=== PATIENT | female | born 1960 | race American Indian/Alaskan Native ===

== ENCOUNTER 2019-02-06 19:51 | Emergency (ER) | payer MEDICARE ==
--- NOTE | 2019-02-06 21:25 | Emergency Department Report ---
Blank Doc - Documentation Documentation: 58 y/o bilateral leg swelling and pain times 1 week. PMH DM, HTN, CHF
[2019-02-06 21:35] LABS: Basophils # (Auto) 0.1 K/mm3 (0.0-0.1); Basophils % (Auto) 1.6 % (0.0-1.8); Eosinophils # (Auto) 0.2 K/mm3 (0.0-0.4); Eosinophils % (Auto) 2.1 % (0.0-4.3); Hemoglobin 12.1 gm/dl (10.1-14.3); Lymphocytes # (Auto) 2.7 K/mm3 (1.2-5.4); Lymphocytes % (Auto) 30.3 % (13.4-35.0); Mean Corpuscular HGB Conc 34 % (30-34); Mean Corpuscular Volume 90 fl (79-97); Monocytes # (Auto) 0.7 K/mm3 (0.0-0.8); Monocytes % (Auto) 8.2 % (0.0-7.3); Platelet Count 254 K/mm3 (140-440); Red Blood Count 3.99 M/mm3 (3.65-5.03)
[2019-02-06 21:58] LABS: Alanine Aminotransferase 13 units/L (7-56); Albumin 3.6 g/dL (3.9-5); BUN/Creatinine Ratio 26; Blood Urea Nitrogen 18 mg/dL (7-17); Calcium 9.4 mg/dL (8.4-10.2); Hemolysis Index 14
[2019-02-06] MEDS ORDERED: LASIX IV ONE (23:50)
--- NOTE | 2019-02-06 23:56 | Emergency Department Report ---
ED General Adult HPI - General Chief complaint: Extremity Problem,Nontraumatic Stated complaint: BILATERAL LEG PAIN/EDEMA Time Seen by Provider: 02/06/19 23:47 Source: patient Mode of arrival: Ambulatory Limitations: No Limitations - History of Present Illness Initial comments: Mrs. Bolden is a very pleasant 58-year-old female history of CHF, bipolar di sorder, schizophrenia, dyslipidemia, hypertension. She recently moved moved from [facility]. For the past week she's had tense leg swelling. She denies shortness of breath or chest pain. She takes furosemide 40 mg twice a day. She states when swelling worsen she normally needs a shot of Lasix. She does admit to adding salt to her foods. She has trouble complying with a low salt diet. -: Gradual, week(s) (1) Location: left, right, lower extremity Quality: aching Consistency: constant Improves with: medication Associated Symptoms: denies other symptoms - Related Data Allergies Allergy/AdvReac Type Severity Reaction Status Date / Time No Known Allergies Allergy Unverified 02/06/19 21:22 ED Review of Systems ROS: Stated complaint: BILATERAL LEG PAIN/EDEMA Other details as noted in HPI Comment: All other systems reviewed and negative Constitutional: denies: fever, malaise Cardiovascular: denies: chest pain ED Past Medical Hx - Past Medical History Previous Medical History?: Yes Hx Hypertension: Yes Hx Congestive Heart Failure: Yes Hx Psychiatric Treatment: Yes (bipolar, schizophrenia) Additional medical history: hyperlipidemia - Surgical History Past Surgical History?: Yes Additional Surgical History: hysterectomy, cardiac cath - Social History Smoking Status: Current Every Day Smoker Substance Use Type: None, Alcohol ED Physical Exam - General Limitations: No Limitations General appearance: alert, in no apparent distress, other (pleasant and articulate) - Head Head exam: Present: atraumatic, normocephalic - Eye Eye exam: Present: normal appearance - ENT ENT exam: Present: mucous membranes moist - Neck Neck exam: Present: normal inspection, full ROM - Respiratory Respiratory exam: Present: normal lung sounds bilaterally. Absent: respiratory distress, wheezes, rales, rhonchi - Cardiovascular Cardiovascular Exam: Present: regular rate, normal rhythm, normal heart sounds. Absent: systolic murmur, diastolic murmur, rubs, gallop - GI/Abdominal GI/Abdominal exam: Present: soft, normal bowel sounds. Absent: distended, tenderness, guarding, rebound - Extremities Exam Extremities exam: Present: pedal edema (pitting edema lower extremities from mid thigh to foot) - Back Exam Back exam: Present: normal inspection - Neurological Exam Neurological exam: Present: alert, oriented X3 - Psychiatric Psychiatric exam: Present: normal affect, normal mood - Skin Skin exam: Present: warm, dry, intact, normal color. Absent: rash ED Course Vital Signs 02/06/19 19:59 Temperature 97.6 F Pulse Rate 85 Respiratory 16 Rate Blood Pressure 141/84 O2 Sat by Pulse 92 Oximetry ED Medical Decision Making - Lab Data Result diagrams: 02/06/19 21:25 02/06/19 21:25 Laboratory Results - last 24 hr 02/06/19 02/06/19 21:25 21:25 WBC 9.0 RBC 3.99 Hgb 12.1 Hct 36.0 MCV 90 MCH 30 MCHC 34 RDW 15.0 Plt Count 254 Lymph % (Auto) 30.3 [place] % (Auto) 8.2 H Eos % (Auto) 2.1 Baso % (Auto) 1.6 Lymph # 2.7 [place] # 0.7 Eos # 0.2 Baso # 0.1 Seg Neutrophils % 57.8 Seg Neutrophils # 5.2 Sodium 140 Potassium 4.4 Chloride 102.6 Carbon Dioxide 27 Anion Gap 15 BUN 18 H Creatinine 0.7 Estimated GFR > 60 BUN/Creatinine Ratio 26 Glucose 223 H Calcium 9.4 Total Bilirubin 0.30 AST 18 ALT 13 Alkaline Phosphatase 49 NT-Pro-B Natriuret Pep 3753 H Total Protein 6.2 L Albumin 3.6 L Albumin/Globulin Ratio 1.4 - Medical Decision Making Mrs. Bolden presents with recurrent/chronic bilateral lower extremity edema with known history of congestive heart failure. Labs remarkable for elevated BNP normal kidney function. She received IV furosemide in the emergency department. Discharged with referral to assistant real estate manager on-call. Mrs. Bolden appears well without work of breathing. Critical care attestation.: If time is entered above; I have spent that time in minutes in the direct care of this critically ill patient, excluding procedure time. ED Disposition Clinical Impression: Bilateral lower extremity edema, Hx of congestive heart failure Disposition: - TO HOME OR SELFCARE Is pt being admited?: No Does the pt Need Aspirin: No Condition: Stable Instructions: Heart Failure (ED), Leg Edema (ED) Referrals: HANS PITTS MD [Staff Physician] - 3-5 Days
[2019-02-07 00:52] VITALS: BP 138/88
== END 2019-02-07 00:52 | disposition home or self-care (01) ==
LOC: ED 19:51
DX: R60.9 Edema, unspecified (principal); I11.0 Hypertensive heart disease with heart failure; I50.9 Heart failure, unspecified; E78.5 Hyperlipidemia, unspecified; F17.200 Nicotine dependence, unspecified, uncomplicated; Z90.710 Acquired absence of both cervix and uterus
CPT/HCPCS: 36415; 80053; 83880; 85025; 96374; 99283; J1940

== ENCOUNTER 2019-04-24 11:00 | Outpatient (CLI) | payer MEDICARE | END 2019-04-24 11:01 | disposition home or self-care (01) | LOC: SLR 11:00 | PROVIDERS: ATTEND Otolaryngology | DX: G47.33 Obstructive sleep apnea (adult) (pediatric) (principal); R40.0 Somnolence; R06.83 Snoring; E66.9 Obesity, unspecified; I11.0 Hypertensive heart disease with heart failure; I50.9 Heart failure, unspecified | CPT/HCPCS: 95810 ==

== ENCOUNTER 2019-04-27 10:39 | Inpatient (IN) | payer MEDICARE ==
--- NOTE | 2019-04-27 11:32 | Emergency Department Report ---
ED General Adult HPI - General Chief complaint: Hyperglycemia Stated complaint: HIGH BLOOD SUGAR Time Seen by Provider: 04/27/19 11:19 Source: patient, EMS (ems notes not available at time of chart dictation), RN notes reviewed, old records reviewed Mode of arrival: Stretcher - History of Present Illness Initial comments: This is a 58-year-old female. The patient is not known to this provider previously. Past medical history includes high cholesterol, congestive heart failure, diabetes, hypertension, psychiatric disease, CHF, bipolar Patient initially sent to the ER with a complaint of hyperglycemia. Accu-Chek was 421. Patient also complains of a sensation of her chest wall caving in, shortness of breath and lower extremity swelling. Symptoms are constant, does not radiate anywhere, worse with physical exertion and decreased with rest. The patient indicates no DVT or pulmonary embolism risk factors. She also endorses nontraumatic left-sided thumb pain. It decreases with ibuprofen and Motrin. -: Gradual Location: chest, left, upper extremity Radiation: non-radiation Quality: aching Consistency: other Improves with: other Worsens with: other Associated Symptoms: shortness of breath - Related Data Allergies Allergy/AdvReac Type Severity Reaction Status Date / Time No Known Allergies Allergy Verified 04/27/19 11:05 ED Review of Systems ROS: Stated complaint: HIGH BLOOD SUGAR Other details as noted in HPI Constitutional: denies: fever, malaise Eyes: denies: eye discharge ENT: denies: congestion Respiratory: shortness of breath Cardiovascular: chest pain, edema Gastrointestinal: denies: nausea, vomiting Genitourinary: denies: dysuria Musculoskeletal: arthralgia, myalgia Skin: denies: lesions Neurological: weakness Hematological/Lymphatic: denies: easy bleeding ED Past Medical Hx - Past Medical History Previous Medical History?: Yes Hx Hypertension: Yes Hx Congestive Heart Failure: Yes Hx Diabetes: Yes Hx GERD: Yes Hx Psychiatric Treatment: Yes (bipolar, schizophrenia,depression) Hx COPD: Yes Additional medical history: hyperlipidemia, cardiomegaly, OA, atherosclerosis of bilateral legs - Surgical History Past Surgical History?: Yes Additional Surgical History: hysterectomy, cardiac cath, bilateral foot surgery - Social History Smoking Status: Current Every Day Smoker Substance Use Type: None ED Physical Exam - General Limitations: No Limitations General appearance: alert, anxious, obese - Head Head exam: Present: atraumatic, normocephalic - Eye Eye exam: Present: normal appearance, EOMI. Absent: nystagmus - ENT ENT exam: Present: normal exam, normal orophraynx, mucous membranes moist, n ormal external ear exam - Neck Neck exam: Present: normal inspection, full ROM. Absent: tenderness, meningismus - Respiratory Respiratory exam: Present: rales. Absent: respiratory distress - Cardiovascular Cardiovascular Exam: Present: regular rate, normal rhythm, normal heart sounds, JVD. Absent: bradycardia, tachycardia, irregular rhythm, systolic murmur, diastolic murmur, rubs, gallop - GI/Abdominal GI/Abdominal exam: Present: soft. Absent: distended, tenderness, guarding, rebound, rigid, pulsatile mass - Extremities Exam Extremities exam: Present: normal inspection, full ROM, pedal edema, other (2+ pulses noted in the bilateral upper, lower extremities. Compartments soft. No long bony tenderness. The pelvis is stable.). Absent: joint swelling, calf tenderness - Back Exam Back exam: Present: normal inspection, full ROM. Absent: tenderness, CVA tenderness (R), CVA tenderness (L), paraspinal tenderness, vertebral tenderness - Neurological Exam Neurological exam: Present: alert, oriented X3, other (Extraocular movements intact. Tongue midline. No facial droop. Facial sensation intact to light touch in the V1, V2, V3 distribution bilaterally. 5 and 5 strength in 4 extremities.. Sensation is intact to light touch in 4 extremities.). Absent: motor sensory deficit - Psychiatric Psychiatric exam: Present: normal affect, normal mood - Skin Skin exam: Present: warm, dry, intact, normal color. Absent: rash ED Course Vital Signs 04/27/19 04/27/19 04/27/19 10:56 11:01 11:12 Temperature 97.8 F Pulse Rate 69 Respiratory 16 Rate Blood Pressure 170/99 Blood Pressure 152/89 [Right] O2 Sat by Pulse 91 97 95 Oximetry 04/27/19 04/27/19 11:31 12:13 Temperature Pulse Rate Respiratory Rate Blood Pressure 145/122 180/101 Blood Pressure [Right] O2 Sat by Pulse 96 97 Oximetry - Reevaluation(s) Reevaluation #1: 04/27/19 13:05 Differential diagnosis, including not limited to: GERD, gastritis, hiatal hernia, pneumonia, congestive heart failure, acute coronary syndrome, pulmonary hypertension, obstructive sleep apnea Assessment and plan: 58-year-old female with numerous cardiovascular risk factors, including female gender, obesity, diabetes, hypertension and high cholesterol, who appears to be obese, most likely has undiagnosed sleep apnea, pulmonary hypertension, presented with evidence of decompensated right-sided heart failure, manifest by hypoxia on room air, saturating at 90-90% on room air, lower extremity edema, and JVD. She endorses no DVT or pulmonary embolus risk factors. The patient is moderate risk for major adverse cardiac event as per the heart score risk stratification tool. She is also found to be hyperglycemic. She will be given Lasix, aspirin, insulin, the patient will be admitted to the medical service for glycemic optimization, diuresis, and consideration for cardiac risk stratification. Reevaluation #2: 04/27/19 13:[address] Kelby Shen, [facility] physician ED Medical Decision Making - Lab Data Result diagrams: 04/27/19 12:01 04/27/19 12:01 Vital Signs 04/27/19 04/27/19 04/27/19 10:56 11:01 11:12 Temperature 97.8 F Pulse Rate 69 Respiratory 16 Rate Blood Pressure 170/99 Blood Pressure 152/89 [Right] O2 Sat by Pulse 91 97 95 Oximetry 04/27/19 04/27/19 11:31 12:13 Temperature Pulse Rate Respiratory Rate Blood Pressure 145/122 180/101 Blood Pressure [Right] O2 Sat by Pulse 96 97 Oximetry Lab Results 04/27/19 04/27/19 04/27/19 Range/Units 11:00 12:01 12:01 WBC 7.1 (4.5-11.0) K/mm3 RBC 4.94 (3.65-5.03) M/mm3 Hgb 14.4 H (10.1-14.3) gm/dl Hct 45.0 H (30.3-42.9) % MCV 91 (79-97) fl MCH 29 (28-32) pg MCHC 32 (30-34) % RDW 14.9 (13.2-15.2) % Plt Count 251 (140-440) K/mm3 PT (12.2-14.9) Sec. INR (0.87-1.13) APTT (24.2-36.6) Sec. VBG pH (7.320-7.420) Sodium 141 (137-145) mmol/L Potassium 4.5 (3.6-5.0) mmol/L Chloride 101.0 (98-107) mmol/L Carbon Dioxide 32 H (22-30) mmol/L Anion Gap 13 mmol/L BUN 17 (7-17) mg/dL Creatinine 0.7 (0.7-1.2) mg/dL Estimated GFR > 60 ml/min BUN/Creatinine Ratio 24 % Glucose 282 H (65-100) mg/dL POC Glucose 421 H (70-105) Calcium 9.6 (8.4-10.2) mg/dL Magnesium 2.00 (1.7-2.3) mg/dL Total Creatine Kinase 140 H (30-135) units/L Troponin T (0.00-0.029) ng/mL NT-Pro-B Natriuret Pep (0-900) pg/mL 04/27/19 04/27/19 04/27/19 Range/Units 12:01 12:01 12:01 WBC (4.5-11.0) K/mm3 RBC (3.65-5.03) M/mm3 Hgb (10.1-14.3) gm/dl Hct (30.3-42.9) % MCV (79-97) fl MCH (28-32) pg MCHC (30-34) % RDW (13.2-15.2) % Plt Count (140-440) K/mm3 PT 13.7 (12.2-14.9) Sec. INR 1.08 (0.87-1.13) APTT 33.2 (24.2-36.6) Sec. VBG pH 7.328 (7.320-7.420) Sodium (137-145) mmol/L Potassium (3.6-5.0) mmol/L Chloride (98-107) mmol/L Carbon Dioxide (22-30) mmol/L Anion Gap mmol/L BUN (7-17) mg/dL Creatinine (0.7-1.2) mg/dL Estimated GFR ml/min BUN/Creatinine Ratio % Glucose (65-100) mg/dL POC Glucose (70-105) Calcium (8.4-10.2) mg/dL Magnesium (1.7-2.3) mg/dL Total Creatine Kinase (30-135) units/L Troponin T < 0.010 (0.00-0.029) ng/mL NT-Pro-B Natriuret Pep 1971 H (0-900) pg/mL - EKG Data -: EKG Interpreted by Pr EKG shows normal: sinus rhythm Rate: normal - EKG Data 04/27/19 13:07 EKG #1 shows a sinus rhythm, 67 bpm, normal axis, QTC prolonged, low voltage, atrial enlargement, abnormal EKG, there is no prior for comparison, the EKG is not consistent with ST elevation myocardial infarction. EKG number tube appears to be unchanged from prior. Neither EKG consistent with STEMI - Radiology Data Radiology results: pending, report reviewed, image reviewed Print Report Referring Physician: GRETA MINOR Patient Name: RENE ROGERS Date of : 1960 Sex: Female Report Date: 2019-04-27 Report Status: Finalized Findings [facility] [address] [place] [address] XRay Report Signed Patient: RENE ROGERS MR#: [id number] : 1960 Acct:[id number] Age/Sex: 58 / F ADM Date: 04/27/19 Loc: ED Attending Dr: Ordering Physician: GRETA MINOR MD Date of Service: 04/27/19 Procedure(s): XR chest routine 2V Accession Number(s): [id number] cc: GRETA MINOR MD Fluoro Time In Minutes: CHEST 2 VIEWS INDICATION: Chest pain, shortness of breath. COMPARISON: FINDINGS: Support devices: None. Heart: Mild cardiomegaly is evident. The mediastinal contour is within normal limits otherwise. Lungs/pleura: No acute air space or interstitial disease. No pneumothorax. Additional findings: None. IMPRESSION: Mild cardiomegaly. Lungs clear. Signer Name: Woody Lombardi Jr, MD Signed: 04/27/2019 12:24 PM Workstation Name: [id number] Transcribed By: TTR Dictated By: WOODY LOMBARDI JR, MD Electronically Authenticated By: WOODY LOMBARDI JR, MD Signed Date/Time: 04/27/19 1224 Critical care attestation.: If time is entered above; I have spent that time in minutes in the direct care of this critically ill patient, excluding procedure time. ED Disposition Clinical Impression: CHF exacerbation, Hyperglycemia, Acute chest pain Disposition: 09 OP ADMIT IP TO THIS HOSP Is pt being admited?: Yes Does the pt Need Aspirin: Yes Condition: Stable Instructions: Chest Pain (ED) Referrals: LAUREN BHATT MD [Primary Care Provider] - 3-5 Days
[2019-04-27 12:13] LABS: Hemoglobin 14.4 gm/dl (10.1-14.3); Mean Corpuscular HGB Conc 32 % (30-34); Mean Corpuscular Volume 91 fl (79-97); Platelet Count 251 K/mm3 (140-440); Red Blood Count 4.94 M/mm3 (3.65-5.03); Red Cell Distribution Width 14.9 % (13.2-15.2)
[2019-04-27 12:24] LABS: INR 1.08 (0.87-1.13)
[2019-04-27 12:25] LABS: Partial Thromboplastin Time 33.2 Sec. (24.2-36.6)
--- NOTE | 2019-04-27 12:29 | XRay Report ---
CHEST 2 VIEWS INDICATION: Chest pain, shortness of breath. COMPARISON: FINDINGS: Support devices: None. Heart: Mild cardiomegaly is evident. The mediastinal contour is within normal limits otherwise. Lungs/pleura: No acute air space or interstitial disease. No pneumothorax. Additional findings: None. IMPRESSION: Mild cardiomegaly. Lungs clear. Signer Name: Woody Lombardi Jr, MD Signed: 04/27/2019 12:24 PM Workstation Name: [id number]
[2019-04-27 12:39] LABS: BUN/Creatinine Ratio 24; Blood Urea Nitrogen 17 mg/dL (7-17); Calcium 9.6 mg/dL (8.4-10.2); Hemolysis Index 5
[2019-04-27] MEDS ORDERED: LASIX IV ONE (13:03)
[2019-04-27] MEDS ORDERED: HumuLIN R IV ONE (13:03)
[2019-04-27] MEDS ORDERED: BABY ASPIRIN PO ONE (13:08)
--- NOTE | 2019-04-27 13:19 | History and Physical Report ---
History of Present Illness Chief complaint: My blood sugar is high, and i haven't been feeling too good History of present illness: 58 YO Female with Obesity, Systolic CHF, Nicotine Dependence, COPD, GERD, DM, HTN, Bipolar, Schizophrenia, Depression presents to ED for evaluation. Pt states that she has experienced shortness of breath over the past 1 week, with worsening symptoms over the past 3 days. Pt acknowledges leg edema, decreased exercise tolerance, Orthopnea/PND, dypsnea with exertion and at rest. Pt went to Urgentcare for evaluation and was found to have a serum glucone of 421. Pt sent to [facility] for further care. EMS notified and upon arrival the patient was found to be in distress and transported to [facility]. Pt seen and evaluated in ED and found to have symptoms consistent with CHF Decompensation, and Uncontrolled DM. Pt admitted to telemetry. Cardiology consulted in ED. Pt denies fever, chills, CP, Palpitations, NVD, Trauma, BRBPR, Productive Cough, Unilateral leg swelling, calf pain, prolonged travel/immobility, Individual/family history of DVT/PE. No prior admission for review. No medication listed for reconciliation at time of admission. Past History Past Medical History: COPD, diabetes, GERD, heart failure, hypertension, other (Bipolar, Schicophrenia, Depression, Obesity) Past Surgical History: hysterectomy, Other (Cardiac Cath, Foot surgery) Social history: , smoking Family history: diabetes, hypertension Medications and Allergies Allergies Allergy/AdvReac Type Severity Reaction Status Date / Time No Known Allergies Allergy Verified 04/27/19 11:05 Home Medications Medication Instructions Recorded Confirmed Last Taken Type ALBUTEROL Inhaler (OR & NICU) 2 puff IH QID PRN 04/27/19 04/27/19 Unknown History [Proair] AtorvaSTATin [Lipitor] 10 mg PO QHS 04/27/19 04/27/[address] [DepaKOTE DR] 500 mg PO BID 04/27/19 04/27/19 Unknown History Duloxetine HCl [Cymbalta] 20 mg PO DAILY 04/27/19 04/27/19 Unknown History Furosemide [Lasix TAB] 40 mg PO QDAY 04/27/19 04/27/19 Unknown History Gabapentin [Neurontin] 300 mg PO Q8HR 04/27/19 04/27/19 Unknown History Ibuprofen [Motrin] 800 mg PO Q8HR PRN 04/27/19 04/27/19 Unknown History Insulin Glargine,Hum.rec.anlog 40 unit SQ QHS 04/27/19 04/27/19 Unknown History [Lantus Solostar] Insulin Regular, Human [HumuLIN R] 7 unit SQ TIDWM 04/27/19 04/27/19 Unknown History Lisinopril [Zestril TAB] 10 mg PO QDAY 04/27/19 04/27/19 Unknown History Metoprolol Xl [Metoprolol 50 mg PO QDAY 04/27/19 04/27/19 Unknown History SUCCINATE ER TAB] Pantoprazole [Protonix] 40 mg PO QDAY 04/27/19 04/27/19 Unknown History Potassium Chloride [K-Dur] 10 meq PO QDAY 04/27/19 04/27/19 Unknown History QUEtiapine [SEROquel] 100 mg PO QHS 04/27/19 04/27/19 Unknown History Sertraline [Zoloft] 50 mg PO QDAY 04/27/19 04/27/19 Unknown History traMADol [Ultram] 50 mg PO Q4HR PRN 04/27/19 04/27/19 Unknown History Review of Systems Constitutional: weakness, no weight loss, no weight gain, no fever, no chills Ears, nose, mouth and throat: no ear pain, no ear discharge, no tinnitis, no d ecreased hearing, no nose pain, no nasal congestion Breasts: no change in shape, no swelling, no mass Cardiovascular: orthopnea, shortness of breath, dyspnea on exertion, paroxysmal nocturnal dyspnea, high blood pressure, decreased exercise tolerance, no chest pain, no rapid/irregular heart beat, no syncope, no lightheadedness Respiratory: no cough, no cough with sputum, no excessive sputum, no hemoptysis Gastrointestinal: no abdominal pain, no nausea, no vomiting, no diarrhea, no constipation Genitourinary Female: no pelvic pain, no flank pain, no menorrhagia Rectal: no pain, no incontinence, no bleeding Musculoskeletal: no neck stiffness, no neck pain, no shooting arm pain, no arm numbness/tingling, no low back pain, no shooting leg pain Integumentary: no rash, no pruritis, no redness, no sores, no wounds Neurological: no transient paralysis, no paralysis, no weakness, no numbness, no tingling, no tremors Psychiatric: no anxiety, no memory loss, no change in sleep habits, no sleep disturbances, no hypersomnia Endocrine: polydipsia, polyuria, nocturia, no cold intolerance, no heat intolerance Hematologic/Lymphatic: no easy bruising, no easy bleeding, no lymphadenopathy Allergic/Immunologic: no urticaria, no allergic rhinitis, no wheezing, no anaphylaxis Exam - Constitutional Vitals: Temp Pulse Resp BP Pulse Ox 97.8 F 69 16 180/101 97 04/27/19 11:01 04/27/19 11:01 04/27/19 11:01 04/27/19 12:13 04/27/19 12:13 General appearance: Present: mild distress, obese - EENT Eyes: Present: PERRL ENT: hearing intact, clear oral mucosa - Neck Neck: Present: supple, normal ROM - Respiratory Respiratory effort: normal Respiratory: bilateral: rhonchi - Cardiovascular Heart Sounds: Present: S1 & S2. Absent: rub, click - Extremities Extremities: pulses symmetrical Extremity abnormal: edema Peripheral Pulses: within normal limits - Abdominal General gastrointestinal: Present: soft, non-tender, non-distended, normal bowel sounds Female genitourinary: Present: normal - Integumentary Integumentary: Present: clear, warm, dry - Musculoskeletal Musculoskeletal: gait normal, strength equal bilaterally - Psychiatric Psychiatric: appropriate mood/affect, intact judgment & insight - Neurologic Neurologic: CNII-XII intact, moves all extremities Results - Labs CBC & Chem 7: 04/27/19 12:01 04/27/19 12:01 Labs: Abnormal lab results 04/27/19 04/27/19 04/27/19 Range/Units 11:00 12:01 12:01 Hgb 14.4 H (10.1-14.3) gm/dl Hct 45.0 H (30.3-42.9) % Carbon Dioxide 32 H (22-30) mmol/L Glucose 282 H (65-100) mg/dL POC Glucose 421 H (70-105) Total Creatine Kinase 140 H (30-135) units/L NT-Pro-B Natriuret Pep (0-900) pg/mL 04/27/19 Range/Units 12:01 Hgb (10.1-14.3) gm/dl Hct (30.3-42.9) % Carbon Dioxide (22-30) mmol/L Glucose (65-100) mg/dL POC Glucose (70-105) Total Creatine Kinase (30-135) units/L NT-Pro-B Natriuret Pep 1971 H (0-900) pg/mL Assessment and Plan - Patient Problems (1) CHF (congestive heart failure) Current Visit: Yes Status: Acute Qualifiers: Heart failure chronicity: acute on chronic Plan to address problem: Admit to telemetry, Echo, cardiology consulted in ED, strict I/O, daily weight, monitor uop q shift, afterload reduction, chest x ray, bnp, supplemental oxygen, thyroid panel, magnesium level, diuresis. (2) Hyperglycemia Current Visit: Yes Status: Acute Plan to address problem: Insulin therapy, ADA diet, insulin, accu check, hypoglycemia protocol (3) GERD (gastroesophageal reflux disease) Current Visit: Yes Status: Acute Qualifiers: Esophagitis presence: without esophagitis Qualified Code(s): K21.9 - Gastr o-esophageal reflux disease without esophagitis Plan to address problem: PPI therapy, (4) Nicotine dependence unspecified, with withdrawal Current Visit: Yes Status: Acute Qualifiers: Nicotine product type: cigarettes Qualified Code(s): F17.213 - Nicotine dependence, cigarettes, with withdrawal Plan to address problem: Smoking cessation counseling +15minutes, supportive care. (5) DVT prophylaxis Current Visit: Yes Status: Acute Plan to address problem: SCD to BLE while in bed. prophylactic lovenox
[2019-04-27] MEDS ORDERED: SODIUM CHLORIDE FLUSH SYRINGE 10 ML IV PRN (13:20)
[2019-04-27] MEDS ORDERED: ZOFRAN IV PRN (13:20)
[2019-04-27] MEDS ORDERED: TYLENOL PO PRN (13:20)
[2019-04-27] MEDS ORDERED: PROVENTIL IH PRN (13:20)
[2019-04-27] MEDS ORDERED: PEPCID ONE (13:40)
[2019-04-27 14:38] LABS: Free T4 (Free Thyroxine) 0.97 ng/dL (0.76-1.46)
[2019-04-27] MEDS ORDERED: IBUPROFEN PO PRN (15:05)
[2019-04-27] MEDS ORDERED: D50W (25GM) Syringe IV ONE ×2 (15:09→15:12)
[2019-04-27] MEDS ORDERED: NACL 0.9% 500 ML 500 ML IV ONE (16:13)
[2019-04-27] MEDS ORDERED: NACL 0.9% 500 ML 500 ML ONE (16:17)
[2019-04-27] MEDS: ULTRAM PO PRN (22:57)
[2019-04-27] MEDS: PEPCID PO SCH (22:59)
[2019-04-27] MEDS: NEURONTIN PO SCH (23:00)
[2019-04-27] MEDS: SODIUM CHLORIDE FLUSH SYRINGE 10 ML IV SCH (23:03)
[2019-04-28] MEDS: NEURONTIN PO SCH ×3 (06:06→22:59)
[2019-04-28 06:07] LABS: Basophils # (Auto) 0.1 K/mm3 (0.0-0.1); Eosinophils # (Auto) 0.2 K/mm3 (0.0-0.4); Hematocrit 45.4 % (30.3-42.9); Hemoglobin 14.5 gm/dl (10.1-14.3); Lymphocytes % (Auto) 35.8 % (13.4-35.0); Mean Corpuscular HGB Conc 32 % (30-34); Mean Corpuscular Volume 92 fl (79-97); Monocytes # (Auto) 0.6 K/mm3 (0.0-0.8); Monocytes % (Auto) 7.3 % (0.0-7.3); Platelet Count 266 K/mm3 (140-440); Red Blood Count 4.96 M/mm3 (3.65-5.03); Red Cell Distribution Width 15.3 % (13.2-15.2)
[2019-04-28] MEDS: LASIX IV SCH ×2 (06:07→19:34)
[2019-04-28 06:33] LABS: Alanine Aminotransferase 13 units/L (7-56); Albumin 3.5 g/dL (3.9-5); BUN/Creatinine Ratio 25; Blood Urea Nitrogen 15 mg/dL (7-17); Hemolysis Index 61
[2019-04-28] MEDS ORDERED: ZESTRIL PO SCH (10:00)
[2019-04-28] MEDS ORDERED: NON-FORMULARY (Duloxetine Hcl [Cymbalta] 20 MG) PO SCH (10:00)
[2019-04-28] MEDS: TOPROL XL PO SCH (10:08)
[2019-04-28] MEDS: K-DUR PO SCH (10:08)
[2019-04-28] MEDS: ZOLOFT PO SCH (10:08)
[2019-04-28] MEDS: PEPCID PO SCH ×2 (10:08→23:00)
[2019-04-28] MEDS: PROTONIX PO SCH (10:09)
[2019-04-28] MEDS: SODIUM CHLORIDE FLUSH SYRINGE 10 ML IV SCH (10:10)
--- NOTE | 2019-04-28 11:19 | Consultation ---
History of Present Illness Consult date: 04/28/19 Consult reason: congestive heart failure History of present illness: Patient is a 58-year old woman with a history of uncontrolled Diabetes who was admitted with hyperglycemia. It's reported a blood glucose of 417 in the emergency department. A cardiac consultation has been requested for CHF management. Patient is a poor historian but gives a history of CHF while living in [place] a year ago. 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 She denies shortness of breath, chest pain and palpitations. Lower extremity edema has resolved. CXR reports cardiomegaly with evidence of interstitial edema. An ECG is sinus rhythm, no acute ischemic changes. Past History Past Medical History: COPD, diabetes, GERD, heart failure, hypertension, other (Bipolar, Schicophrenia, Depression, Obesity) Past Surgical History: hysterectomy, Other (Cardiac Cath, Foot surgery) Social history: , smoking Family history: diabetes, hypertension Medications and Allergies Allergies Allergy/AdvReac Type Severity Reaction Status Date / Time No Known Allergies Allergy Verified 04/27/19 11:05 Home Medications Medication Instructions Recorded Confirmed Last Taken Type ALBUTEROL Inhaler (OR & NICU) 2 puff IH QID PRN 04/27/19 04/27/19 Unknown History [Proair] AtorvaSTATin [Lipitor] 10 mg PO QHS 04/27/19 04/27/19 Unknown History Divalproex [DepaKOTE DR] 500 mg PO BID 04/27/19 04/27/19 Unknown History Duloxetine HCl [Cymbalta] 20 mg PO DAILY 04/27/19 04/27/19 Unknown History Furosemide [Lasix TAB] 40 mg PO QDAY 04/27/19 04/27/19 Unknown History Gabapentin [Neurontin] 300 mg PO Q8HR 04/27/19 04/27/19 Unknown History Ibuprofen [Motrin] 800 mg PO Q8HR PRN 04/27/19 04/27/19 Unknown History Insulin Glargine,Hum.rec.anlog 40 unit SQ QHS 04/27/19 04/27/19 Unknown History [Lantus Solostar] Insulin Regular, Human [HumuLIN R] 7 unit SQ TIDWM 04/27/19 04/27/19 Unknown History Lisinopril [Zestril TAB] 10 mg PO QDAY 04/27/19 04/27/19 Unknown History Metoprolol Xl [Metoprolol 50 mg PO QDAY 04/27/19 04/27/19 Unknown History SUCCINATE ER TAB] Pantoprazole [Protonix] 40 mg PO QDAY 04/27/19 04/27/19 Unknown History Potassium Chloride [K-Dur] 10 meq PO QDAY 04/27/19 04/27/19 Unknown History QUEtiapine [SEROquel] 100 mg PO QHS 04/27/19 04/27/19 Unknown History Sertraline [Zoloft] 50 mg PO QDAY 04/27/19 04/27/19 Unknown History traMADol [Ultram] 50 mg PO Q4HR PRN 04/27/19 04/27/19 Unknown History Active Meds: Active Medications Acetaminophen (Tylenol) 650 mg PO Q4H PRN PRN Reason: Pain MILD(1-3)/Fever >100.5/[place] Albuterol (Proventil) 2.5 mg IH Q4HRT PRN PRN Reason: Shortness Of Breath Atorvastatin Calcium (Lipitor) 10 mg PO QHS [facility] Last Admin: 04/27/19 22:59 Dose: 10 mg Documented by: Divalproex Sodium (Depakote Dr) 500 mg PO BID [facility] Last Admin: 04/28/19 10:08 Dose: 500 mg Documented by: Famotidine (Pepcid) 10 mg PO BID [facility] Last Admin: 04/28/19 10:08 Dose: 10 mg Documented by: Furosemide (Lasix) 40 mg IV BID@0600,1800 [facility] Last Admin: 04/28/19 06:07 Dose: 40 mg Documented by: Gabapentin (Neurontin) 300 mg PO Q8HR [facility] Last Admin: 04/28/19 06:06 Dose: 300 mg Documented by: Ibuprofen (Ibuprofen) 800 mg PO Q8HR PRN PRN Reason: Pain , Severe (7-10) Lisinopril (Zestril) 10 mg PO QDAY [facility] Last Admin: 04/28/19 10:09 Dose: 10 mg Documented by: Metoprolol Succinate (Toprol Xl) 50 mg PO QDAY [facility] Last Admin: 04/28/19 10:08 Dose: 50 mg Documented by: Miscellaneous Medication (Duloxetine Hcl [Cymbalta]) 20 mg PO DAILY [facility] Ondansetron HCl (Zofran) 4 mg IV Q8H PRN PRN Reason: Nausea And Vomiting Pantoprazole Sodium (Protonix) 40 mg PO QDAY [facility] Last Admin: 04/28/19 10:09 Dose: 40 mg Documented by: Potassium Chloride (K-Dur) 10 meq PO QDAY [facility] Last Admin: 04/28/19 10:08 Dose: 10 meq Documented by: Quetiapine Fumarate (Seroquel) 100 mg PO QHS [facility] Last Admin: 04/27/19 23:00 Dose: 100 mg Documented by: Sertraline HCl (Zoloft) 50 mg PO QDAY [facility] Last Admin: 04/28/19 10:08 Dose: 50 mg Documented by: Sodium Chloride (Sodium Chloride Flush Syringe 10 Ml) 10 ml IV BID [facility] Last Admin: 04/28/19 10:10 Dose: 10 ml Documented by: Sodium Chloride (Sodium Chloride Flush Syringe 10 Ml) 10 ml IV PRN PRN PRN Reason: LINE FLUSH Tramadol HCl (Ultram) 50 mg PO Q4HR PRN PRN Reason: Pain Last Admin: 04/27/19 22:57 Dose: 50 mg Documented by: Physical Examination Vital Signs Pulse Ox 91 04/27/19 10:56 General appearance: no acute distress HEENT: Positive: PERRL Neck: Positive: trachea midline Cardiac: Positive: Reg Rate and Rhythm Lungs: Positive: Decreased Breath Sounds Neuro: Positive: Grossly Intact Extremities: Absent: edema Results 04/28/19 04:38 04/28/19 04:38 Cardiac Enzymes 04/28/19 Range/Units 04:38 AST 20 (5-40) units/L Coagulation 04/27/19 Range/Units 12:01 PT 13.7 (12.2-14.9) Sec. INR 1.08 (0.87-1.13) APTT 33.2 (24.2-36.6) Sec. CBC 04/27/19 04/28/19 Range/Units 12:01 04:38 WBC 7.1 8.3 (4.5-11.0) K/mm3 RBC 4.94 4.96 (3.65-5.03) M/mm3 Hgb 14.4 H 14.5 H (10.1-14.3) gm/dl Hct 45.0 H 45.4 H (30.3-42.9) % Plt Count 251 266 (140-440) K/mm3 Lymph # 3.0 (1.2-5.4) K/mm3 [place] # 0.6 (0.0-0.8) K/mm3 Eos # 0.2 (0.0-0.4) K/mm3 Baso # 0.1 (0.0-0.1) K/mm3 Comprehensive Metabolic Panel 04/27/19 04/28/19 Range/Units 12:01 04:38 Sodium 141 138 (137-145) mmol/L Potassium 4.5 4.8 (3.6-5.0) mmol/L Chloride 101.0 100.2 (98-107) mmol/L Carbon Dioxide 32 H 28 (22-30) mmol/L BUN 17 15 (7-17) mg/dL Creatinine 0.7 0.6 L (0.7-1.2) mg/dL Glucose 282 H 365 H (65-100) mg/dL Calcium 9.6 9.0 (8.4-10.2) mg/dL AST 20 (5-40) units/L ALT 13 (7-56) units/L Alkaline Phosphatase 63 (35-129) units/L Total Protein 6.8 (6.3-8.2) g/dL Albumin 3.5 L (3.9-5) g/dL Assessment and Plan Uncontrolled Diabetes Acute CHF Hypertension Recommendations: Fluid/sodium restriction. Daily weight. Medical management for acute heart failure including IV diuretics. Obtain prior records from [facility] for cardiac review.
--- NOTE | 2019-04-28 17:28 | Progress Note ---
Assessment and Plan Assessment and plan: Patient is a 58 yo woman with a history of Obesity, Systolic CHF, Nicotine Dependence, COPD, GERD, DM, HTN, Bipolar, Schizophrenia and Depression who presents to [facility] ED with SOB. She was found to have uncontrolled blood glucose and CHF ex. -Acute on chronic systolic heart failure: treat with iv lasix, Cardiology consulted in ED, strict I/O, daily weight, monitor uop q shift, afterload reduction, chest x ray, bnp, supplemental oxygen, thyroid panel, magnesium level, diuresis. -Type 2 DM with complication of hyperglycemia: check A1c -Tobacco dependency: alcohol and drug counselor on stopping -Schizophrenia, bipolar, denies SI: continue antipsych medications, consult Mental health -GERD (gastroesophageal reflux disease): ppi -DVT prophylaxis: SCD to BLE while in bed. prophylactic lovenox History Interval history: Patient was seen and examined. Follow-up on current diagnosis of CHF. No overnight events reported to me. Patient denies any chest pain, nausea/vomiting or severe headaches. Imaging, nursing note, chart, labs and old chart reviewed. Discussed with patient. Hospitalist Physical - Physical exam Narrative exam: Gen: WDWN, NAD, Awake, Alert, Orientated HEENT: NCAT, EOMI, PERRL, OP Clear Neck: supple, no adenopathy, no thyromegaly, no JVD CVS/Heart: RRR, normal S1S2, pulses present bilaterally Chest/Lungs: diminished bs bilateral , Symmetrical chest expansion, good air entry bilaterally GI/Abdomen: soft, NTND, good bowel sounds, no guarding or rebound /Bladder: no suprapubic tenderness, no CVA or paraspinal tenderness Extermity/Skin: no c/c/e, no obvious rash MSK: FROM x 4 Neuro: CN 2-12 grossly intact, no new focal deficits Psych: calm, denies SI and hallicunations at present - Constitutional Vitals: Temp Pulse Resp BP Pulse Ox 98.0 F 65 18 141/79 94 04/28/19 16:39 04/28/19 16:39 04/28/19 16:39 04/28/19 16:39 04/28/19 16:39 General appearance: Present: no acute distress Results - Labs CBC & Chem 7: 04/28/19 04:38 04/28/19 04:38 Labs: Laboratory Last Values WBC 8.3 K/mm3 (4.5-11.0) 04/28/19 04:38 RBC 4.96 M/mm3 (3.65-5.03) 04/28/19 04:38 Hgb 14.5 gm/dl (10.1-14.3) H 04/28/19 04:38 Hct 45.4 % (30.3-42.9) H 04/28/19 04:38 MCV 92 fl (79-97) 04/28/19 04:38 MCH 29 pg (28-32) 04/28/19 04:38 MCHC 32 % (30-34) 04/28/19 04:38 RDW 15.3 % (13.2-15.2) H 04/28/19 04:38 Plt Count 266 K/mm3 (140-440) 04/28/19 04:38 Lymph % (Auto) 35.8 % (13.4-35.0) H 04/28/19 04:38 [place] % (Auto) 7.3 % (0.0-7.3) 04/28/19 04:38 Eos % (Auto) 2.0 % (0.0-4.3) 04/28/19 04:38 Baso % (Auto) 1.0 % (0.0-1.8) 04/28/19 04:38 Lymph # 3.0 K/mm3 (1.2-5.4) 04/28/19 04:38 [place] # 0.6 K/mm3 (0.0-0.8) 04/28/19 04:38 Eos # 0.2 K/mm3 (0.0-0.4) 04/28/19 04:38 Baso # 0.1 K/mm3 (0.0-0.1) 04/28/19 04:38 Seg Neutrophils % 53.9 % (40.0-70.0) 04/28/19 04:38 Seg Neutrophils # 4.5 K/mm3 (1.8-7.7) 04/28/19 04:38 PT 13.7 Sec. (12.2-14.9) 04/27/19 12:01 INR 1.08 (0.87-1.13) 04/27/19 12:01 APTT 33.2 Sec. (24.2-36.6) 04/27/19 12:01 VBG pH 7.328 (7.320-7.420) 04/27/19 12:01 Sodium 138 mmol/L (137-145) 04/28/19 04:38 Potassium 4.8 mmol/L (3.6-5.0) 04/28/19 04:38 Chloride 100.2 mmol/L (98-107) 04/28/19 04:38 Carbon Dioxide 28 mmol/L (22-30) 04/28/19 04:38 15 mmol/L 04/28/19 04:38 BUN 15 mg/dL (7-17) 04/28/19 04:38 0.6 mg/dL (0.7-1.2) L 04/28/19 04:38 Estimated GFR > 60 ml/min 04/28/19 04:38 25 % 04/28/19 04:38 Glucose 365 mg/dL (65-100) H 04/28/19 04:38 POC Glucose 359 (70-105) H 04/28/19 16:44 Calcium 9.0 mg/dL (8.4-10.2) 04/28/19 04:38 Magnesium 1.80 mg/dL (1.7-2.3) 04/27/19 14:00 0.30 mg/dL (0.1-1.2) 04/28/19 04:38 AST 20 units/L (5-40) 04/28/19 04:38 ALT 13 units/L (7-56) 04/28/19 04:38 63 units/L (35-129) 04/28/19 04:38 140 units/L (30-135) H 04/27/19 12:01 < 0.010 ng/mL (0.00-0.029) 04/27/19 12:01 NT-Pro-B Natriuret Pep 1971 pg/mL (0-900) H 04/27/19 12:01 6.8 g/dL (6.3-8.2) 04/28/19 04:38 3.5 g/dL (3.9-5) L 04/28/19 04:38 1.1 % 04/28/19 04:38 TSH 1.560 mlU/mL (0.270-4.200) 04/27/19 13:31 Free T4 0.97 ng/dL (0.76-1.46) 04/27/19 13:31 Active Medications - Current Medications Current Medications: Generic Name Dose Route Start Last Admin Trade Name Freq PRN Reason Stop Dose Admin Acetaminophen 650 mg 04/27/19 13:20 Tylenol PO Q4H PRN Pain MILD(1-3)/Fever >100.5/[place] Albuterol 2.5 mg 04/27/19 13:20 Proventil IH Q4HRT PRN Shortness Of Breath Atorvastatin Calcium 10 mg 04/27/19 22:00 04/27/19 22:59 Lipitor PO 10 mg QHS [facility] Administration Divalproex Sodium 500 mg 04/27/19 22:00 04/28/19 10:[address] PO 500 mg BID [facility] Administration Famotidine 10 mg 04/27/19 22:00 04/28/19 10:08 Pepcid PO 10 mg BID [facility] Administration Furosemide 40 mg 04/28/19 06:00 04/28/19 06:07 Lasix IV 40 mg BID@0600,1800 [facility] Administration Gabapentin 300 mg 04/27/19 22:00 04/28/19 06:06 Neurontin PO 300 mg Q8HR [facility] Administration Ibuprofen 800 mg 04/27/19 15:05 Ibuprofen PO Q8HR PRN Pain , Severe (7-10) Isosorbide Mononitrate 30 mg 04/28/19 15:00 Imdur PO QDAY [facility] Lisinopril 10 mg 04/28/19 10:00 04/28/19 10:09 Zestril PO 10 mg QDAY [facility] Administration Metoprolol Succinate 50 mg 04/28/19 10:00 04/28/19 10:08 Toprol Xl PO 50 mg QDAY [facility] Administration Miscellaneous Medication 20 mg 04/28/19 10:00 Duloxetine Hcl [Cymbalta] PO DAILY [facility] Ondansetron HCl 4 mg 04/27/19 13:20 Zofran IV Q8H PRN Nausea And Vomiting Pantoprazole Sodium 40 mg 04/28/19 10:00 04/28/19 10:09 Protonix PO 40 mg QDAY [facility] Administration Potassium Chloride 10 meq 04/28/19 10:00 04/28/19 10:08 K-Dur PO 10 meq QDAY [facility] Administration Quetiapine Fumarate 100 mg 04/27/19 22:00 04/27/19 23:00 Seroquel PO 100 mg QHS [facility] Administration Sertraline HCl 50 mg 04/28/19 10:00 04/28/19 10:08 Zoloft PO 50 mg QDAY [facility] Administration Sodium Chloride 10 ml 04/27/19 22:00 04/28/19 10:10 Sodium Chloride Flush Syringe 10 Ml IV 10 ml BID [facility] Administration Sodium Chloride 10 ml 04/27/19 13:20 Sodium Chloride Flush Syringe 10 Ml IV PRN PRN LINE FLUSH Tramadol HCl 50 mg 04/27/19 15:05 04/27/19 22:57 Ultram PO 50 mg Q4HR PRN Administration Pain
[2019-04-28] MEDS: IMDUR PO SCH (19:34)
[2019-04-28] MEDS ORDERED: APRESOLINE IV PRN (20:23)
[2019-04-28] MEDS: NORVASC PO SCH (23:00)
[2019-04-28] MEDS: COZAAR PO SCH (23:02)
[2019-04-28] MEDS: ULTRAM PO PRN (23:08)
[2019-04-29] MEDS: SODIUM CHLORIDE FLUSH SYRINGE 10 ML IV SCH ×3 (00:51→22:08)
[2019-04-29 05:40] LABS: Hemoglobin 14.1 gm/dl (10.1-14.3); Mean Corpuscular HGB Conc 32 % (30-34); Mean Corpuscular Volume 90 fl (79-97); Platelet Count 268 K/mm3 (140-440)
[2019-04-29] MEDS: LASIX IV SCH ×2 (05:55→20:00)
[2019-04-29] MEDS: NEURONTIN PO SCH ×3 (05:55→22:07)
[2019-04-29] MEDS: ULTRAM PO PRN ×2 (05:59→22:07)
[2019-04-29 06:00] LABS: BUN/Creatinine Ratio 24; Blood Urea Nitrogen 12 mg/dL (7-17); Calcium 9.1 mg/dL (8.4-10.2); Hemolysis Index 8
[2019-04-29] MEDS: NORVASC PO SCH (10:47)
[2019-04-29] MEDS: PEPCID PO SCH ×2 (10:49→22:07)
[2019-04-29] MEDS: COZAAR PO SCH (10:49)
[2019-04-29] MEDS: TOPROL XL PO SCH (10:49)
--- NOTE | 2019-04-29 10:49 | Progress Note ---
<AQUILES CORRALES - Last Filed: 04/29/19 10:47> Assessment and Plan Uncontrolled Diabetes Acute CHF -systolic Hx of Dilated cardiomyopathy Hypertension An echocardiogram reports a severe dilated cardiomyopathy, ejection fraction 15- 20%. Recommendations: Fluid/sodium restriction. Daily weight. Continue medical management for acute systolic heart failure. Obtain prior records from [facility] for cardiac review. Further cardiac evaluation would depend on clinical course and findings on review of her past cardiac records. Subjective Date of service: 04/29/19 Interval history: Patient has no complaints. She denies shortness of breath and chest pain. Objective Vital Signs Temp Pulse Resp BP Pulse Ox 04/29/19 04:13 97.9 F 68 18 123/68 91 04/28/19 23:51 97.9 F 74 18 137/76 98 04/28/19 23:02 69 171/94 04/28/19 23:00 69 171/94 04/28/19 20:40 94 04/28/19 20:16 71 04/28/19 19:46 97.3 F L 69 20 171/94 94 04/28/19 19:34 66 04/28/19 16:39 98.0 F 65 18 141/79 94 04/28/19 11:54 98.2 F 78 18 162/98 94 - Physical Examination General: No Apparent Distress HEENT: Positive: PERRL Neck: Positive: trachea midline Cardiac: Positive: Reg Rate and Rhythm Lungs: Positive: Decreased Breath Sounds Neuro: Positive: Grossly Intact Extremities: Absent: edema - Labs and Meds CBC 04/29/19 Range/Units 05:00 WBC 5.9 (4.5-11.0) K/mm3 RBC 4.90 (3.65-5.03) M/mm3 Hgb 14.1 (10.1-14.3) gm/dl Hct 44.0 H (30.3-42.9) % Plt Count 268 (140-440) K/mm3 Comprehensive Metabolic Panel 04/29/19 Range/Units 05:00 Sodium 137 (137-145) mmol/L Potassium 4.3 (3.6-5.0) mmol/L Chloride 96.3 L (98-107) mmol/L Carbon Dioxide 30 (22-30) mmol/L BUN 12 (7-17) mg/dL Creatinine 0.5 L (0.7-1.2) mg/dL Glucose 423 H (65-100) mg/dL Calcium 9.1 (8.4-10.2) mg/dL <GRETA CARBAJAL - Last Filed: 04/29/19 11:20> Assessment and Plan Seen and evaluated the patient agree with this assessment and plan. Patient reportedly has a history of congestive heart failure which was worked up prior to this hospital admission with a left heart catheterization done at [facility]. Echocardiogram here shows a dilated cardiomyopathy with ejection fraction 15-20%. Recommended continue maximal medical therapy. Awaiting records from previous Medical Center. Objective Vital Signs Temp Pulse Resp BP Pulse Ox 04/29/19 11:03 93 04/29/19 10:50 69 04/29/19 10:49 69 153/68 04/29/19 10:47 67 153/68 04/29/19 04:13 97.9 F 68 18 123/68 91 04/28/19 23:51 97.9 F 74 18 137/76 98 04/28/19 23:02 69 171/94 04/28/19 23:00 69 171/94 04/28/19 20:40 94 04/28/19 20:16 71 04/28/19 19:46 97.3 F L 69 20 171/94 94 04/28/19 19:34 66 04/28/19 16:39 98.0 F 65 18 141/79 94 04/28/19 11:54 98.2 F 78 18 162/98 94 - Labs and Meds CBC 04/29/19 Range/Units 05:00 WBC 5.9 (4.5-11.0) K/mm3 RBC 4.90 (3.65-5.03) M/mm3 Hgb 14.1 (10.1-14.3) gm/dl Hct 44.0 H (30.3-42.9) % Plt Count 268 (140-440) K/mm3 Comprehensive Metabolic Panel 04/29/19 Range/Units 05:00 Sodium 137 (137-145) mmol/L Potassium 4.3 (3.6-5.0) mmol/L Chloride 96.3 L (98-107) mmol/L Carbon Dioxide 30 (22-30) mmol/L BUN 12 (7-17) mg/dL Creatinine 0.5 L (0.7-1.2) mg/dL Glucose 423 H (65-100) mg/dL Calcium 9.1 (8.4-10.2) mg/dL
[2019-04-29] MEDS: K-DUR PO SCH (10:50)
[2019-04-29] MEDS: IMDUR PO SCH (10:50)
[2019-04-29] MEDS: ZOLOFT PO SCH (10:51)
[2019-04-29] MEDS: PROTONIX PO SCH (10:51)
--- NOTE | 2019-04-29 16:52 | Progress Note ---
Assessment and Plan Assessment and plan: Patient is a 58 yo woman with a history of Obesity, Systolic CHF, Nicotine Dependence, COPD, GERD, DM, HTN, Bipolar, Schizophrenia and Depression who presents to [facility] ED with SOB. She was found to have uncontrolled blood glucose and CHF ex. -Acute on chronic systolic heart failure: treat with iv lasix, Cardiology consulted in ED, input noted, monitor renal function/bmp closely -Type 2 DM with complication of hyperglycemia: checked A1c==>12.7, chief counsel on compliance, restart Lantus at night -Tobacco dependency: chief counsel on stopping -Schizophrenia, bipolar, denies SI: continue antipsych medications, consulted Mental health -GERD (gastroesophageal reflux disease): ppi -DVT prophylaxis: SCD to BLE while in bed. prophylactic lovenox Disposition: continue inpatient care, d/c once cleared by Cardiology, still on iv lasix twice daily History Interval history: Patient was seen and examined. Follow-up on current diagnosis of CHF. No overnight events reported to me. Patient denies any chest pain, nausea/vomiting or severe headaches. Imaging, nursing note, chart, labs and old chart reviewed. Discussed with patient. Hospitalist Physical - Physical exam Narrative exam: Gen: WDWN, NAD, Awake, Alert, Orientated HEENT: NCAT, EOMI, PERRL, OP Clear Neck: supple, no adenopathy, no thyromegaly, no JVD CVS/Heart: RRR, normal S1S2, pulses present bilaterally Chest/Lungs: diminished bs bilateral , Symmetrical chest expansion, good air entry bilaterally GI/Abdomen: soft, NTND, good bowel sounds, no guarding or rebound /Bladder: no suprapubic tenderness, no CVA or paraspinal tenderness Extermity/Skin: no c/c/e, no obvious rash MSK: FROM x 4 Neuro: CN 2-12 grossly intact, no new focal deficits Psych: calm, denies SI and hallicunations at present - Constitutional Vitals: Temp Pulse Resp BP Pulse Ox 98.2 F 66 18 117/70 89 04/29/19 12:31 04/29/19 12:31 04/29/19 12:31 04/29/19 12:31 04/29/19 12:31 General appearance: Present: no acute distress Results - Labs CBC & Chem 7: 04/29/19 05:00 04/29/19 05:00 Labs: Laboratory Last Values WBC 5.9 K/mm3 (4.5-11.0) 04/29/19 05:00 RBC 4.90 M/mm3 (3.65-5.03) 04/29/19 05:00 Hgb 14.1 gm/dl (10.1-14.3) 04/29/19 05:00 Hct 44.0 % (30.3-42.9) H 04/29/19 05:00 MCV 90 fl (79-97) 04/29/19 05:00 MCH 29 pg (28-32) 04/29/19 05:00 MCHC 32 % (30-34) 04/29/19 05:00 RDW 15.0 % (13.2-15.2) 04/29/19 05:00 Plt Count 268 K/mm3 (140-440) 04/29/19 05:00 Lymph % (Auto) 35.8 % (13.4-35.0) H 04/28/19 04:38 [place] % (Auto) 7.3 % (0.0-7.3) 04/28/19 04:38 Eos % (Auto) 2.0 % (0.0-4.3) 04/28/19 04:38 Baso % (Auto) 1.0 % (0.0-1.8) 04/28/19 04:38 Lymph # 3.0 K/mm3 (1.2-5.4) 04/28/19 04:38 [place] # 0.6 K/mm3 (0.0-0.8) 04/28/19 04:38 Eos # 0.2 K/mm3 (0.0-0.4) 04/28/19 04:38 Baso # 0.1 K/mm3 (0.0-0.1) 04/28/19 04:38 Seg Neutrophils % 53.9 % (40.0-70.0) 04/28/19 04:38 Seg Neutrophils # 4.5 K/mm3 (1.8-7.7) 04/28/19 04:38 PT 13.7 Sec. (12.2-14.9) 04/27/19 12:01 INR 1.08 (0.87-1.13) 04/27/19 12:01 APTT 33.2 Sec. (24.2-36.6) 04/27/19 12:01 VBG pH 7.328 (7.320-7.420) 04/27/19 12:01 Sodium 137 mmol/L (137-145) 04/29/19 05:00 Potassium 4.3 mmol/L (3.6-5.0) 04/29/19 05:00 Chloride 96.3 mmol/L (98-107) L 04/29/19 05:00 Carbon Dioxide 30 mmol/L (22-30) 04/29/19 05:00 15 mmol/L 04/29/19 05:00 BUN 12 mg/dL (7-17) 04/29/19 05:00 0.5 mg/dL (0.7-1.2) L 04/29/19 05:00 Estimated GFR > 60 ml/min 04/29/19 05:00 24 % 04/29/19 05:00 Glucose 423 mg/dL (65-100) H 04/29/19 05:00 POC Glucose 398 (70-105) H 04/29/19 12:41 12.7 % (4-6) H 04/29/19 05:00 Calcium 9.1 mg/dL (8.4-10.2) 04/29/19 05:00 Magnesium 1.80 mg/dL (1.7-2.3) 04/27/19 14:00 0.30 mg/dL (0.1-1.2) 04/28/19 04:38 AST 20 units/L (5-40) 04/28/19 04:38 ALT 13 units/L (7-56) 04/28/19 04:38 63 units/L (35-129) 04/28/19 04:38 140 units/L (30-135) H 04/27/19 12:01 < 0.010 ng/mL (0.00-0.029) 04/27/19 12:01 NT-Pro-B Natriuret Pep 1971 pg/mL (0-900) H 04/27/19 12:01 6.8 g/dL (6.3-8.2) 04/28/19 04:38 3.5 g/dL (3.9-5) L 04/28/19 04:38 1.1 % 04/28/19 04:38 TSH 1.560 mlU/mL (0.270-4.200) 04/27/19 13:31 Free T4 0.97 ng/dL (0.76-1.46) 04/27/19 13:31 Active Medications - Current Medications Current Medications: Generic Name Dose Route Start Last Admin Trade Name Freq PRN Reason Stop Dose Admin Acetaminophen 650 mg 04/27/19 13:20 Tylenol PO Q4H PRN Pain MILD(1-3)/Fever >100.5/[place] Albuterol 2.5 mg 04/27/19 13:20 Proventil IH Q4HRT PRN Shortness Of Breath Amlodipine Besylate 10 mg 04/28/19 21:00 04/29/19 10:47 Norvasc PO 10 mg QDAY [facility] Administration Atorvastatin Calcium 10 mg 04/27/19 22:00 04/28/19 22:59 Lipitor PO 10 mg QHS [facility] Administration Divalproex Sodium 500 mg 04/27/19 22:00 04/29/19 10:[address] PO 500 mg BID [facility] Administration Famotidine 10 mg 04/27/19 22:00 04/29/19 10:49 Pepcid PO 10 mg BID [facility] Administration Furosemide 40 mg 04/28/19 06:00 04/29/19 05:55 Lasix IV 40 mg BID@0600,1800 [facility] Administration Gabapentin 300 mg 04/27/19 22:00 04/29/19 14:50 Neurontin PO 300 mg Q8HR [facility] Administration Hydralazine HCl 10 mg 04/28/19 20:23 Apresoline IV Q3HR PRN Hypertension Insulin Glargine 20 units 04/29/19 22:00 Lantus SUB-Q QHS [facility] Isosorbide Mononitrate 30 mg 04/28/19 15:00 04/29/19 10:50 Imdur PO 30 mg QDAY [facility] Administration Losartan Potassium 100 mg 04/28/19 21:00 04/29/19 10:49 Cozaar PO 100 mg QDAY [facility] Administration Metoprolol Succinate 50 mg 04/28/19 10:00 04/29/19 10:49 Toprol Xl PO 50 mg QDAY [facility] Administration Miscellaneous Medication 20 mg 04/28/19 10:00 Duloxetine Hcl [Cymbalta] PO DAILY [facility] Ondansetron HCl 4 mg 04/27/19 13:20 Zofran IV Q8H PRN Nausea And Vomiting Pantoprazole Sodium 40 mg 04/28/19 10:00 04/29/19 10:51 Protonix PO 40 mg QDAY [facility] Administration Quetiapine Fumarate 100 mg 04/27/19 22:00 04/28/19 23:02 Seroquel PO 100 mg QHS [facility] Administration Sertraline HCl 50 mg 04/28/19 10:00 04/29/19 10:51 Zoloft PO 50 mg QDAY [facility] Administration Sodium Chloride 10 ml 04/27/19 22:00 04/29/19 10:51 Sodium Chloride Flush Syringe 10 Ml IV 10 ml BID PORTILLO Administration Sodium Chloride 10 ml 04/27/19 13:20 Sodium Chloride Flush Syringe 10 Ml IV PRN PRN LINE FLUSH Spironolactone 25 mg 04/30/19 10:00 Aldactone PO QDAY PORTILLO Tramadol HCl 50 mg 04/27/19 15:05 04/29/19 05:59 Ultram PO 50 mg Q4HR PRN Administration Pain
[2019-04-29] MEDS ORDERED: D50W (25GM) Syringe IV PRN (19:10)
[2019-04-29] MEDS: HumaLOG SUB-Q SCH ×2 (20:00→22:07)
[2019-04-29] MEDS ORDERED: LANTUS SUB-Q SCH (22:00)
[2019-04-30] MEDS: LASIX IV SCH (05:20)
[2019-04-30] MEDS: NEURONTIN PO SCH ×3 (05:20→21:17)
[2019-04-30 06:17] LABS: BUN/Creatinine Ratio 32; Blood Urea Nitrogen 19 mg/dL (7-17); Calcium 9.1 mg/dL (8.4-10.2); Hemolysis Index 8
[2019-04-30] MEDS: COZAAR PO SCH (09:25)
[2019-04-30] MEDS: NORVASC PO SCH (09:25)
[2019-04-30] MEDS: PEPCID PO SCH ×2 (09:26→21:17)
[2019-04-30] MEDS: IMDUR PO SCH (09:26)
[2019-04-30] MEDS: TOPROL XL PO SCH (09:26)
[2019-04-30] MEDS: ALDACTONE PO SCH (09:26)
--- NOTE | 2019-04-30 09:26 | Progress Note ---
Assessment and Plan Uncontrolled Diabetes Acute on chronic CHF -systolic Hx of Dilated Nonischemic cardiomyopathy [facility] 12/2017 at [facility] reports no significant CAD. LVEF 25-30% by an echocardiogram 12/2017 at [facility]. An echocardiogram this admission reports a severe dilated cardiomyopathy, ejection fraction 15-20%. Hypertension Hx of PAD Schizoaffective disorder Recommendations: Advised fluid/sodium restriction. Continue medical management for chronic systolic heart failure. Otherwise, conservative cardiac management. 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 Subjective Date of service: 04/30/19 Interval history: Patient reports her breathing is better. She reports she is diuresing well. Objective Vital Signs Temp Pulse Resp BP Pulse Ox 04/30/19 08:08 98.3 F 68 16 107/66 96 04/30/19 03:57 98.2 F 66 20 91/59 91 04/29/19 23:47 98.4 F 70 14 107/52 96 04/29/19 22:00 93 04/29/19 19:50 97.6 F 63 14 139/84 93 04/29/19 17:01 98.0 F 62 18 113/70 90 04/29/19 12:31 98.2 F 66 18 117/70 89 04/29/19 11:03 93 04/29/19 10:50 69 04/29/19 10:49 69 153/68 04/29/19 10:47 67 153/68 04/29/19 10:00 62 18 94 - Physical Examination General: No Apparent Distress HEENT: Positive: PERRL Neck: Positive: trachea midline Cardiac: Positive: Reg Rate and Rhythm Lungs: Positive: Decreased Breath Sounds Neuro: Positive: Grossly Intact Extremities: Absent: edema - Labs and Meds Comprehensive Metabolic Panel 04/30/19 Range/Units 04:29 Sodium 138 (137-145) mmol/L Potassium 4.0 (3.6-5.0) mmol/L Chloride 93.7 L (98-107) mmol/L Carbon Dioxide 30 (22-30) mmol/L BUN 19 H (7-17) mg/dL Creatinine 0.6 L (0.7-1.2) mg/dL Glucose 177 H (65-100) mg/dL Calcium 9.1 (8.4-10.2) mg/dL
[2019-04-30] MEDS: HumaLOG SUB-Q SCH ×5 (09:27→23:36)
[2019-04-30] MEDS: SODIUM CHLORIDE FLUSH SYRINGE 10 ML IV SCH ×2 (09:28→21:18)
[2019-04-30] MEDS: ZOLOFT PO SCH (09:29)
[2019-04-30] MEDS: PROTONIX PO SCH (09:30)
[2019-04-30] MEDS ORDERED: LANTUS SUB-Q SCH (14:25)
--- NOTE | 2019-04-30 14:31 | Progress Note ---
Assessment and Plan Assessment and plan: Patient is a 58 yo woman with a history of Obesity, Systolic CHF, Nicotine Dependence, COPD, GERD, DM, HTN, Bipolar, Schizophrenia and Depression who presents to [facility] ED with SOB. She was found to have uncontrolled blood glucose and CHF ex. -Acute on chronic systolic heart failure: treat with iv lasix, Cardiology consulted in ED, input noted, monitor renal function/bmp closely -Type 2 DM with complication of hyperglycemia: checked A1c==>12.7, primary counselor on compliance, restart Lantus at night -Tobacco dependency: primary counselor on stopping -Schizophrenia, bipolar, denies SI: continue antipsych medications, consulted Mental health -GERD (gastroesophageal reflux disease): ppi -DVT prophylaxis: SCD to BLE while in bed. prophylactic lovenox Disposition: continue inpatient care, d/c once cleared by Cardiology, still on iv lasix twice daily-->d/w Dr. Ramos, April records came, had [facility], so he recommends LifeVest prior to discharge and reduce lasix to 40mg po daily. History Interval history: Patient was seen and examined. Follow-up on current diagnosis of CHF. No overnight events reported to me. Patient denies any chest pain, nausea/vomiting or severe headaches. Imaging, nursing note, chart, labs and old chart reviewed. Discussed with patient. Hospitalist Physical - Physical exam Narrative exam: Gen: WDWN, NAD, Awake, Alert, Orientated HEENT: NCAT, EOMI, PERRL, OP Clear Neck: supple, no adenopathy, no thyromegaly, no JVD CVS/Heart: RRR, normal S1S2, pulses present bilaterally Chest/Lungs: diminished bs bilateral , Symmetrical chest expansion, good air entry bilaterally GI/Abdomen: soft, NTND, good bowel sounds, no guarding or rebound /Bladder: no suprapubic tenderness, no CVA or paraspinal tenderness Extermity/Skin: no c/c/e, no obvious rash MSK: FROM x 4 Neuro: CN 2-12 grossly intact, no new focal deficits Psych: calm, denies SI and hallicunations at present - Constitutional Vitals: Temp Pulse Resp BP Pulse Ox 98.3 F 68 16 107/66 96 04/30/19 08:08 04/30/19 09:26 04/30/19 08:08 04/30/19 09:26 04/30/19 08:08 General appearance: Present: no acute distress Results - Labs CBC & Chem 7: 04/29/19 05:00 04/30/19 04:29 Labs: Laboratory Last Values WBC 5.9 K/mm3 (4.5-11.0) 04/29/19 05:00 RBC 4.90 M/mm3 (3.65-5.03) 04/29/19 05:00 Hgb 14.1 gm/dl (10.1-14.3) 04/29/19 05:00 Hct 44.0 % (30.3-42.9) H 04/29/19 05:00 MCV 90 fl (79-97) 04/29/19 05:00 MCH 29 pg (28-32) 04/29/19 05:00 MCHC 32 % (30-34) 04/29/19 05:00 RDW 15.0 % (13.2-15.2) 04/29/19 05:00 Plt Count 268 K/mm3 (140-440) 04/29/19 05:00 Lymph % (Auto) 35.8 % (13.4-35.0) H 04/28/19 04:38 [place] % (Auto) 7.3 % (0.0-7.3) 04/28/19 04:38 Eos % (Auto) 2.0 % (0.0-4.3) 04/28/19 04:38 Baso % (Auto) 1.0 % (0.0-1.8) 04/28/19 04:38 Lymph # 3.0 K/mm3 (1.2-5.4) 04/28/19 04:38 [place] # 0.6 K/mm3 (0.0-0.8) 04/28/19 04:38 Eos # 0.2 K/mm3 (0.0-0.4) 04/28/19 04:38 Baso # 0.1 K/mm3 (0.0-0.1) 04/28/19 04:38 Seg Neutrophils % 53.9 % (40.0-70.0) 04/28/19 04:38 Seg Neutrophils # 4.5 K/mm3 (1.8-7.7) 04/28/19 04:38 PT 13.7 Sec. (12.2-14.9) 04/27/19 12:01 INR 1.08 (0.87-1.13) 04/27/19 12:01 APTT 33.2 Sec. (24.2-36.6) 04/27/19 12:01 VBG pH 7.328 (7.320-7.420) 04/27/19 12:01 Sodium 138 mmol/L (137-145) 04/30/19 04:29 Potassium 4.0 mmol/L (3.6-5.0) 04/30/19 04:29 Chloride 93.7 mmol/L (98-107) L 04/30/19 04:29 Carbon Dioxide 30 mmol/L (22-30) 04/30/19 04:29 18 mmol/L 04/30/19 04:29 BUN 19 mg/dL (7-17) H 04/30/19 04:29 0.6 mg/dL (0.7-1.2) L 04/30/19 04:29 Estimated GFR > 60 ml/min 04/30/19 04:29 32 % 04/30/19 04:29 Glucose 177 mg/dL (65-100) H 04/30/19 04:29 POC Glucose 204 (70-105) H 04/30/19 07:36 12.7 % (4-6) H 04/29/19 05:00 Calcium 9.1 mg/dL (8.4-10.2) 04/30/19 04:29 Magnesium 1.80 mg/dL (1.7-2.3) 04/27/19 14:00 0.30 mg/dL (0.1-1.2) 04/28/19 04:38 AST 20 units/L (5-40) 04/28/19 04:38 ALT 13 units/L (7-56) 04/28/19 04:38 63 units/L (35-129) 04/28/19 04:38 140 units/L (30-135) H 04/27/19 12:01 < 0.010 ng/mL (0.00-0.029) 04/27/19 12:01 NT-Pro-B Natriuret Pep 1971 pg/mL (0-900) H 04/27/19 12:01 6.8 g/dL (6.3-8.2) 04/28/19 04:38 3.5 g/dL (3.9-5) L 04/28/19 04:38 1.1 % 04/28/19 04:38 TSH 1.560 mlU/mL (0.270-4.200) 04/27/19 13:31 Free T4 0.97 ng/dL (0.76-1.46) 04/27/19 13:31 Active Medications - Current Medications Current Medications: Generic Name Dose Route Start Last Admin Trade Name Freq PRN Reason Stop Dose Admin Acetaminophen 650 mg 04/27/19 13:20 Tylenol PO Q4H PRN Pain MILD(1-3)/Fever >100.5/[place] Albuterol 2.5 mg 04/27/19 13:20 Proventil IH Q4HRT PRN Shortness Of Breath Amlodipine Besylate 10 mg 04/28/19 21:00 04/30/19 09:25 Norvasc PO 10 mg QDAY [facility]ILLO Administration Atorvastatin Calcium 10 mg 04/27/19 22:00 04/29/19 22:07 Lipitor PO 10 mg QHS PORTILLO Administration Dextrose 50 ml 04/29/19 19:10 D50w (25gm) Syringe IV PRN PRN Hypoglycemia Divalproex Sodium 500 mg 04/27/19 22:00 04/30/19 09:[address] PO 500 mg BID [facility]O Administration Famotidine 10 mg 04/27/19 22:00 04/30/19 09:26 Pepcid PO 10 mg BID PORTILLO Administration Furosemide 40 mg 05/01/19 10:00 Lasix PO QDAY PORTILLO Gabapentin 300 mg 04/27/19 22:00 04/30/19 05:20 Neurontin PO 300 mg Q8HR [facility]O Administration Hydralazine HCl 10 mg 04/28/19 20:23 Apresoline IV Q3HR PRN Hypertension Insulin Glargine 30 units 04/30/19 14:25 Lantus SUB-Q QHS PORTILLO Insulin Human Lispro 0 unit 04/29/19 22:00 04/30/19 09:27 Humalog SUB-Q 3 unit ACHS PORTILLO Administration Protocol Isosorbide Mononitrate 30 mg 04/28/19 15:00 04/30/19 09:26 Imdur PO 30 mg QDAY PORTILLO Administration Losartan Potassium 100 mg 04/28/19 21:00 04/30/19 09:25 Cozaar PO 100 mg QDAY [facility]O Administration Metoprolol Succinate 50 mg 04/28/19 10:00 04/30/19 09:26 Toprol Xl PO 50 mg QDAY PORTILLO Administration Miscellaneous Medication 20 mg 04/28/19 10:00 Duloxetine Hcl [Cymbalta] PO DAILY [facility]O Ondansetron HCl 4 mg 04/27/19 13:20 Zofran IV Q8H PRN Nausea And Vomiting Pantoprazole Sodium 40 mg 04/28/19 10:00 04/30/19 09:30 Protonix PO 40 mg QDAY [facility]O Administration Quetiapine Fumarate 100 mg 04/27/19 22:00 04/29/19 22:07 Seroquel PO 100 mg QHS [facility]O Administration Sertraline HCl 50 mg 04/28/19 10:00 04/30/19 09:29 Zoloft PO 50 mg QDAY [facility]ILLO Administration Sodium Chloride 10 ml 04/27/19 22:00 04/30/19 09:28 Sodium Chloride Flush Syringe 10 Ml IV 10 ml BID [facility]O Administration Sodium Chloride 10 ml 04/27/19 13:20 Sodium Chloride Flush Syringe 10 Ml IV PRN PRN LINE FLUSH Spironolactone 25 mg 04/30/19 10:00 04/30/19 09:26 Aldactone PO 25 mg QDAY PORTILLO Administration Tramadol HCl 50 mg 04/27/19 15:05 04/29/19 22:07 Ultram PO 50 mg Q4HR PRN Administration Pain
--- NOTE | 2019-04-30 15:30 | Consultation ---
History of Present Illness - Reason for Consult Consult date: 04/30/19 Reason for consult: Mental Health Evaluation Requesting physician: BERTA THOMAS - Chief Complaint Chief complaint: "I still think about my kids" - History of Present Psychiatric Illness 58 y.o. AA female who presented to the ER for SOB. Psychiatry was consulted to see the patient for medication mgmt. Today the patient was calm and cooperative during the assessment. She stated that her mood have been "altered" since the of her 2 children recently. She stated that she cannot stop crying sometimes. She stated that is seen at [facility] in [place], [place] for outpatient psy services. She stated that it's been hard not having her "kids" around. She stated that she take Zoloft, Depakote, and Seroquel. She stated that the medica tion is effective. She denies self harm behavior when asked. She denies SI/HI's and AVH's. She denies erratic sleep and a poor appetite. She denies recreational drug use and alcohol consumption (etoh). Medications and Allergies Allergies Allergy/AdvReac Type Severity Reaction Status Date / Time No Known Allergies Allergy Verified 04/27/19 11:05 Home Medications Medication Instructions Recorded Confirmed Last Taken Type ALBUTEROL Inhaler (OR & NICU) 2 puff IH QID PRN 04/27/19 04/27/19 Unknown History [Proair] AtorvaSTATin [Lipitor] 10 mg PO QHS 04/27/19 04/27/[address] [DepaKOTE DR] 500 mg PO BID 04/27/19 04/27/19 Unknown History Duloxetine HCl [Cymbalta] 20 mg PO DAILY 04/27/19 04/27/19 Unknown History Furosemide [Lasix TAB] 40 mg PO QDAY 04/27/19 04/27/19 Unknown History Gabapentin [Neurontin] 300 mg PO Q8HR 04/27/19 04/27/19 Unknown History Ibuprofen [Motrin] 800 mg PO Q8HR PRN 04/27/19 04/27/19 Unknown History Insulin Glargine,Hum.rec.anlog 40 unit SQ QHS 04/27/19 04/27/19 Unknown History [Lantus Solostar] Insulin Regular, Human [HumuLIN R] 7 unit SQ TIDWM 04/27/19 04/27/19 Unknown History Lisinopril [Zestril TAB] 10 mg PO QDAY 04/27/19 04/27/19 Unknown History Metoprolol Xl [Metoprolol 50 mg PO QDAY 04/27/19 04/27/19 Unknown History SUCCINATE ER TAB] Pantoprazole [Protonix] 40 mg PO QDAY 04/27/19 04/27/19 Unknown History Potassium Chloride [K-Dur] 10 meq PO QDAY 04/27/19 04/27/19 Unknown History QUEtiapine [SEROquel] 100 mg PO QHS 04/27/19 04/27/19 Unknown History Sertraline [Zoloft] 50 mg PO QDAY 04/27/19 04/27/19 Unknown History traMADol [Ultram] 50 mg PO Q4HR PRN 04/27/19 04/27/19 Unknown History Active Meds: Active Medications Acetaminophen (Tylenol) 650 mg PO Q4H PRN PRN Reason: Pain MILD(1-3)/Fever >100.5/[place] Albuterol (Proventil) 2.5 mg IH Q4HRT PRN PRN Reason: Shortness Of Breath Amlodipine Besylate (Norvasc) 10 mg PO QDAY [facility] Last Admin: 04/30/19 09:25 Dose: 10 mg Documented by: Atorvastatin Calcium (Lipitor) 10 mg PO QHS [facility] Last Admin: 04/29/19 22:07 Dose: 10 mg Documented by: Dextrose (D50w (25gm) Syringe) 50 ml IV PRN PRN PRN Reason: Hypoglycemia Divalproex Sodium (Depakote Dr) 500 mg PO BID [facility] Last Admin: 04/30/19 09:25 Dose: 500 mg Documented by: Famotidine (Pepcid) 10 mg PO BID [facility] Last Admin: 04/30/19 09:26 Dose: 10 mg Documented by: Furosemide (Lasix) 40 mg PO DAILY@0600 [facility] Gabapentin (Neurontin) 300 mg PO Q8HR [facility] Last Admin: 04/30/19 05:20 Dose: 300 mg Documented by: Hydralazine HCl (Apresoline) 10 mg IV Q3HR PRN PRN Reason: Hypertension Insulin Glargine (Lantus) 30 units SUB-Q QHS [facility] Insulin Human Lispro (Humalog) 0 unit SUB-Q ACHS [facility]; Protocol Last Admin: 04/30/19 09:27 Dose: 3 unit Documented by: Isosorbide Mononitrate (Imdur) 30 mg PO QDAY [facility] Last Admin: 04/30/19 09:26 Dose: 30 mg Documented by: Losartan Potassium (Cozaar) 100 mg PO QDAY [facility] Last Admin: 04/30/19 09:25 Dose: 100 mg Documented by: Metoprolol Succinate (Toprol Xl) 50 mg PO QDAY [facility] Last Admin: 04/30/19 09:26 Dose: 50 mg Documented by: Miscellaneous Medication (Duloxetine Hcl [Cymbalta]) 20 mg PO DAILY [facility] Ondansetron HCl (Zofran) 4 mg IV Q8H PRN PRN Reason: Nausea And Vomiting Pantoprazole Sodium (Protonix) 40 mg PO QDAY [facility] Last Admin: 04/30/19 09:30 Dose: 40 mg Documented by: Quetiapine Fumarate (Seroquel) 100 mg PO QHS [facility] Last Admin: 04/29/19 22:07 Dose: 100 mg Documented by: Sertraline HCl (Zoloft) 50 mg PO QDAY [facility] Last Admin: 04/30/19 09:29 Dose: 50 mg Documented by: Sodium Chloride (Sodium Chloride Flush Syringe 10 Ml) 10 ml IV BID [facility] Last Admin: 04/30/19 09:28 Dose: 10 ml Documented by: Sodium Chloride (Sodium Chloride Flush Syringe 10 Ml) 10 ml IV PRN PRN PRN Reason: LINE FLUSH Spironolactone (Aldactone) 25 mg PO QDAY [facility] Last Admin: 04/30/19 09:26 Dose: 25 mg Documented by: Tramadol HCl (Ultram) 50 mg PO Q4HR PRN PRN Reason: Pain Last Admin: 04/29/19 22:07 Dose: 50 mg Documented by: Past psychiatric history - Past Medical History Past Medical History: heart failure Past Surgical History: No surgical history - past Psychiatric treatment and history psychiatric treatment history: Hx of mood do. Denies a fam psy hx. - Social History Social history: lives with family Mental Status Exam - Vital signs Last Vital Signs Temp 98.3 F 04/30/19 08:08 Pulse 68 04/30/19 09:26 Resp 16 04/30/19 08:08 BP 107/66 04/30/19 09:26 Pulse Ox 96 04/30/19 08:08 - Exam Narrative exam: MSE: Appearance: calm, cooperative Behavior: regular eye contact Speech: regular rate and tone Mood: "okay" Affect: flat Thought Process: circumstantial Thought Content: denies SI/HI's and AVH's Motor Activity: sitting up in bed Cognition: A/O x3 Insight: fair Judgment: appropriate Results Result Diagrams: 04/29/19 05:00 04/30/19 04:29 Abnormal lab results 04/29/19 04/29/19 04/29/19 Range/Units 12:41 17:06 20:39 Chloride (98-107) mmol/L BUN (7-17) mg/dL Creatinine (0.7-1.2) mg/dL Glucose (65-100) mg/dL POC Glucose 398 H 395 H 340 H (70-105) 04/30/19 04/30/19 Range/Units 04:29 07:36 Chloride 93.7 L (98-107) mmol/L BUN 19 H (7-17) mg/dL Creatinine 0.6 L (0.7-1.2) mg/dL Glucose 177 H (65-100) mg/dL POC Glucose 204 H (70-105) All other labs normal. Assessment and Plan Assessment and plan: Impression: Hx of Mood DO. Today the patient was calm and cooperative dung the assessment. Recommendation/Plan: Continue home medications (Depakote, Seroquel, and Zoloft). [facility] ordered for the AM. Will follow up with the patient in 24 hours. Dispo: The patient can follwo up with [facility] in [place], [place] Will staff with Dr Liudmila Farnsworth.
[2019-05-01] MEDS: NEURONTIN PO SCH ×2 (05:06→14:15)
[2019-05-01 05:19] LABS: BUN/Creatinine Ratio 35; Blood Urea Nitrogen 21 mg/dL (7-17); Calcium 9.5 mg/dL (8.4-10.2); Hemolysis Index 3
[2019-05-01] MEDS ORDERED: LASIX PO SCH (06:00)
--- NOTE | 2019-05-01 06:48 | Progress Note ---
Assessment and Plan Assessment and plan: Patient is a 58 yo woman with a history of Obesity, Systolic CHF, Nicotine Dependence, COPD, GERD, DM, HTN, Bipolar, Schizophrenia and Depression who presents to [facility] ED with SOB. She was found to have uncontrolled blood glucose and CHF ex. -Acute on chronic systolic heart failure: treat with iv lasix, Cardiology consulted in ED, input noted, monitor renal function/bmp closely -Type 2 DM with complication of hyperglycemia: checked A1c==>12.7, counseling services manager on compliance, restart Lantus at night -Tobacco dependency: counseling services manager on stopping -Schizophrenia, bipolar, denies SI: continue antipsych medications, consulted Mental health -GERD (gastroesophageal reflux disease): ppi -DVT prophylaxis: SCD to BLE while in bed. prophylactic lovenox Disposition: continue inpatient care, d/c once cleared by Cardiology, still on iv lasix twice daily-->d/w Dr. Ramos, April records came, had [facility], so he recommends LifeVest prior to discharge and reduce lasix to 40mg po daily. Just waiting on LifeVEST then d/c home History Interval history: Patient was seen and examined. Follow-up on current diagnosis of CHF. No overnig ht events reported to me. Patient denies any chest pain, nausea/vomiting or severe headaches. Imaging, nursing note, chart, labs and old chart reviewed. Discussed with patient. Hospitalist Physical - Physical exam Narrative exam: Gen: WDWN, NAD, Awake, Alert, Orientated HEENT: NCAT, EOMI, PERRL, OP Clear Neck: supple, no adenopathy, no thyromegaly, no JVD CVS/Heart: RRR, normal S1S2, pulses present bilaterally Chest/Lungs: diminished bs bilateral , Symmetrical chest expansion, good air entry bilaterally GI/Abdomen: soft, NTND, good bowel sounds, no guarding or rebound /Bladder: no suprapubic tenderness, no CVA or paraspinal tenderness Extermity/Skin: no c/c/e, no obvious rash MSK: FROM x 4 Neuro: CN 2-12 grossly intact, no new focal deficits Psych: calm, denies SI and hallicunations at present - Constitutional Vitals: Temp Pulse Resp BP Pulse Ox 97.6 F 68 20 104/66 94 05/01/19 04:46 05/01/19 04:45 05/01/19 04:45 05/01/19 04:45 05/01/19 04:45 General appearance: Present: no acute distress Results - Labs CBC & Chem 7: 04/29/19 05:00 05/01/19 04:23 Labs: Laboratory Last Values WBC 5.9 K/mm3 (4.5-11.0) 04/29/19 05:00 RBC 4.90 M/mm3 (3.65-5.03) 04/29/19 05:00 Hgb 14.1 gm/dl (10.1-14.3) 04/29/19 05:00 Hct 44.0 % (30.3-42.9) H 04/29/19 05:00 MCV 90 fl (79-97) 04/29/19 05:00 MCH 29 pg (28-32) 04/29/19 05:00 MCHC 32 % (30-34) 04/29/19 05:00 RDW 15.0 % (13.2-15.2) 04/29/19 05:00 Plt Count 268 K/mm3 (140-440) 04/29/19 05:00 Lymph % (Auto) 35.8 % (13.4-35.0) H 04/28/19 04:38 [place] % (Auto) 7.3 % (0.0-7.3) 04/28/19 04:38 Eos % (Auto) 2.0 % (0.0-4.3) 04/28/19 04:38 Baso % (Auto) 1.0 % (0.0-1.8) 04/28/19 04:38 Lymph # 3.0 K/mm3 (1.2-5.4) 04/28/19 04:38 [place] # 0.6 K/mm3 (0.0-0.8) 04/28/19 04:38 Eos # 0.2 K/mm3 (0.0-0.4) 04/28/19 04:38 Baso # 0.1 K/mm3 (0.0-0.1) 04/28/19 04:38 Seg Neutrophils % 53.9 % (40.0-70.0) 04/28/19 04:38 Seg Neutrophils # 4.5 K/mm3 (1.8-7.7) 04/28/19 04:38 PT 13.7 Sec. (12.2-14.9) 04/27/19 12:01 INR 1.08 (0.87-1.13) 04/27/19 12:01 APTT 33.2 Sec. (24.2-36.6) 04/27/19 12:01 VBG pH 7.328 (7.320-7.420) 04/27/19 12:01 Sodium 138 mmol/L (137-145) 05/01/19 04:23 Potassium 4.5 mmol/L (3.6-5.0) 05/01/19 04:23 Chloride 96.6 mmol/L (98-107) L 05/01/19 04:23 Carbon Dioxide 33 mmol/L (22-30) H 05/01/19 04:23 13 mmol/L 05/01/19 04:23 BUN 21 mg/dL (7-17) H 05/01/19 04:23 0.6 mg/dL (0.7-1.2) L 05/01/19 04:23 Estimated GFR > 60 ml/min 05/01/19 04:23 35 % 05/01/19 04:23 Glucose 280 mg/dL (65-100) H 05/01/19 04:23 POC Glucose 178 (70-105) H 04/30/19 21:09 12.7 % (4-6) H 04/29/19 05:00 Calcium 9.5 mg/dL (8.4-10.2) 05/01/19 04:23 Magnesium 1.80 mg/dL (1.7-2.3) 04/27/19 14:00 0.30 mg/dL (0.1-1.2) 04/28/19 04:38 AST 20 units/L (5-40) 04/28/19 04:38 ALT 13 units/L (7-56) 04/28/19 04:38 63 units/L (35-129) 04/28/19 04:38 140 units/L (30-135) H 04/27/19 12:01 < 0.010 ng/mL (0.00-0.029) 04/27/19 12:01 NT-Pro-B Natriuret Pep 1971 pg/mL (0-900) H 04/27/19 12:01 6.8 g/dL (6.3-8.2) 04/28/19 04:38 3.5 g/dL (3.9-5) L 04/28/19 04:38 1.1 % 04/28/19 04:38 Amylase 35 units/L (27-131) 04/30/19 16:23 11 units/L (13-60) L 04/30/19 16:23 TSH 1.560 mlU/mL (0.270-4.200) 04/27/19 13:31 Free T4 0.97 ng/dL (0.76-1.46) 04/27/19 13:31 Active Medications - Current Medications Current Medications: Generic Name Dose Route Start Last Admin Trade Name Freq PRN Reason Stop Dose Admin Acetaminophen 650 mg 04/27/19 13:20 Tylenol PO Q4H PRN Pain MILD(1-3)/Fever >100.5/[place] Albuterol 2.5 mg 04/27/19 13:20 Proventil IH Q4HRT PRN Shortness Of Breath Amlodipine Besylate 10 mg 04/28/19 21:00 04/30/19 09:25 Norvasc PO 10 mg QDAY [facility] Administration Atorvastatin Calcium 10 mg 04/27/19 22:00 04/30/19 21:17 Lipitor PO 10 mg QHS [facility] Administration Dextrose 50 ml 04/29/19 19:10 D50w (25gm) Syringe IV PRN PRN Hypoglycemia Divalproex Sodium 500 mg 04/27/19 22:00 04/30/19 21:[address] PO 500 mg BID [facility] Administration Famotidine 10 mg 04/27/19 22:00 04/30/19 21:17 Pepcid PO 10 mg BID [facility] Administration Furosemide 40 mg 05/01/19 06:00 05/01/19 05:06 Lasix PO 40 mg DAILY@0600 [facility] Administration Gabapentin 300 mg 04/27/19 22:00 05/01/19 05:06 Neurontin PO 300 mg Q8HR [facility] Administration Hydralazine HCl 10 mg 04/28/19 20:23 Apresoline IV Q3HR PRN Hypertension Insulin Glargine 30 units 04/30/19 14:25 04/30/19 21:17 Lantus SUB-Q 30 units QHS [facility] Administration Insulin Human Lispro 0 unit 04/29/19 22:00 04/30/19 23:36 Humalog SUB-Q Not Given [facility] Protocol Isosorbide Mononitrate 30 mg 04/28/19 15:00 04/30/19 09:26 Imdur PO 30 mg QDAY [facility] Administration Losartan Potassium 100 mg 04/28/19 21:00 04/30/19 09:25 Cozaar PO 100 mg QDAY [facility] Administration Metoprolol Succinate 50 mg 04/28/19 10:00 04/30/19 09:26 Toprol Xl PO 50 mg QDAY [facility] Administration Miscellaneous Medication 20 mg 04/28/19 10:00 Duloxetine Hcl [Cymbalta] PO DAILY [facility] Ondansetron HCl 4 mg 04/27/19 13:20 Zofran IV Q8H PRN Nausea And Vomiting Pantoprazole Sodium 40 mg 04/28/19 10:00 04/30/19 09:30 Protonix PO 40 mg QDAY [facility] Administration Quetiapine Fumarate 100 mg 04/27/19 22:00 04/30/19 21:17 Seroquel PO 100 mg QHS [facility] Administration Sertraline HCl 50 mg 04/28/19 10:00 04/30/19 09:29 Zoloft PO 50 mg QDAY [facility] Administration Sodium Chloride 10 ml 04/27/19 22:00 04/30/19 21:18 Sodium Chloride Flush Syringe 10 Ml IV 10 ml BID [facility] Administration Sodium Chloride 10 ml 04/27/19 13:20 Sodium Chloride Flush Syringe 10 Ml IV PRN PRN LINE FLUSH Spironolactone 25 mg 04/30/19 10:00 04/30/19 09:26 Aldactone PO 25 mg QDAY [facility] Administration Tramadol HCl 50 mg 04/27/19 15:05 04/29/19 22:07 Ultram PO 50 mg Q4HR PRN Administration Pain
--- NOTE | 2019-05-01 06:54 | Discharge Summary ---
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 She was found to have uncontrolled blood glucose and CHF ex. -Acute on chronic systolic heart failure: treat with iv lasix, Cardiology consulted in ED, input noted, monitor renal function/bmp closely -Type 2 DM with complication of hyperglycemia: checked A1c==>12.7, chromosomal disorders counselor on compliance, restart Lantus at night -Tobacco dependency: chromosomal disorders counselor on stopping -Schizophrenia, bipolar, denies SI: continue antipsych medications, consulted Mental health -GERD (gastroesophageal reflux disease): ppi -DVT prophylaxis: SCD to BLE while in bed. prophylactic lovenox Disposition: continue inpatient care, d/c once cleared by Cardiology, still on iv lasix twice daily-->d/w Dr. De Luna, April came, had [facility], so he recommends LifeVest prior to discharge and reduce lasix to 40mg po daily. Just waiting on LifeVEST then d/c home Disposition: DC TO HOME OR SELFCARE Time spent for discharge: 35 mintues Core Measure Documentation - Palliative Care Palliative Care/ Comfort Measures: Not Applicable - Core Measures Any of the following diagnoses?: heart failure - VTE Discharge Requirements Deep Vein Thrombosis/Pulmonary Embolism Present on Admission: No Has pt received <5 days of overlap therapy or INR<2.0: No Anticoagulant overlap therapy prescribed at discharge: No Contraindication No Overlap Therapy order at DC: Not Indicated - Heart Failure Discharge Requirements CHELLY/ARB for LVSD if EF <40%: Yes Beta david at discharge: Yes Exam - Physical Exam Narrative exam: Gen: WDWN, NAD, Awake, Alert, Orientated HEENT: NCAT, EOMI, PERRL, OP Clear Neck: supple, no adenopathy, no thyromegaly, no JVD CVS/Heart: RRR, normal S1S2, pulses present bilaterally Chest/Lungs: diminished bs bilateral , Symmetrical chest expansion, good air entry bilaterally GI/Abdomen: soft, NTND, good bowel sounds, no guarding or rebound /Bladder: no suprapubic tenderness, no CVA or paraspinal tenderness Extermity/Skin: no c/c/e, no obvious rash MSK: FROM x 4 Neuro: CN 2-12 grossly intact, no new focal deficits Psych: calm, denies SI and hallicunations at present - Constitutional Vitals: Temp Pulse Resp BP Pulse Ox 97.6 F 68 20 104/66 94 05/01/19 04:46 05/01/19 04:45 05/01/19 04:45 05/01/19 04:45 05/01/19 04:45 Plan Activity: other (no strenous activity unless cleared by Cardiology) Diet: low salt, diabetic [facility] [Primary Care Provider] - 3-5 Days MARY KATE DE LUNA MD [Staff Physician] - 7 Days Prescriptions: Spironolactone [Aldactone] 25 mg PO QDAY #[address] [Depakote Dr] 500 mg PO BID #60 tablet Furosemide [Lasix TAB] 40 mg PO DAILY@0600 #30 tablet amLODIPine [Norvasc] 10 mg PO QDAY #30 tablet
--- NOTE | 2019-05-01 10:07 | Progress Note ---
Assessment and Plan Uncontrolled Diabetes Acute on chronic CHF -systolic Hx of Dilated Nonischemic cardiomyopathy C 12/2017 at [facility] reports no significant CAD. LVEF 25-30% by an echocardiogram 12/2017 at [facility]. An echocardiogram this admission reports a severe dilated cardiomyopathy, ejection fraction 15-20%. Hypertension Hx of PAD Schizoaffective disorder Recommendations: Advised fluid/sodium restriction. Continue medical management for chronic systolic heart failure. LifeVest placement as a bridge to eventual ICD implant. 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 Subjective Date of service: 05/01/19 Interval history: Patient has no complaints. No events on telemetry. Awaits lifevest placement. Objective Vital Signs Temp Pulse Resp BP Pulse Ox 05/01/19 09:20 75 05/01/19 08:53 98.2 F 80 20 135/82 91 05/01/19 04:46 97.6 F 05/01/19 04:45 68 20 104/66 94 04/30/19 23:20 97.6 F 04/30/19 23:19 71 18 119/68 95 04/30/19 22:00 79 04/30/19 20:45 94 04/30/19 19:37 97.6 F 04/30/19 19:36 78 20 119/53 91 04/30/19 17:39 97.7 F 68 16 93/63 97 04/30/19 12:59 98.9 F 69 16 96/62 96 04/30/19 10:35 95 - Physical Examination General: No Apparent Distress HEENT: Positive: PERRL Neck: Positive: trachea midline Cardiac: Positive: Reg Rate and Rhythm Lungs: Positive: Decreased Breath Sounds Neuro: Positive: Grossly Intact Extremities: Absent: edema - Labs and Meds Comprehensive Metabolic Panel 05/01/19 Range/Units 04:23 Sodium 138 (137-145) mmol/L Potassium 4.5 (3.6-5.0) mmol/L Chloride 96.6 L (98-107) mmol/L Carbon Dioxide 33 H (22-30) mmol/L BUN 21 H (7-17) mg/dL Creatinine 0.6 L (0.7-1.2) mg/dL Glucose 280 H (65-100) mg/dL Calcium 9.5 (8.4-10.2) mg/dL
--- NOTE | 2019-05-01 11:43 | Progress Note ---
Subjective - Reason for Consult Consult date: 05/01/19 Reason for consult: Psyhciatry Follow-up - Chief Complaint Chief complaint: "II got rest last night" 58 y.o. AA female who presented to the ER for SOB. Psychiatry was consulted to see the patient for medication mgmt. Today the patient was calm and cooperative during the assessment. She stated that she got rest last night. She stated that she plan to stay in the [place] area for a couple of months once discharged. She denies SI/HI's and AVH's. She denies any side effects from her medications. Mental Status Exam - Vital signs Last Vital Signs Temp 98.2 F 05/01/19 08:53 Pulse 75 05/01/19 09:20 Resp 20 05/01/19 08:53 BP 135/82 05/01/19 08:53 Pulse Ox 91 05/01/19 08:53 - Exam Narrative exam: MSE: Appearance: calm, cooperative Behavior: regular eye contact Speech: regular rate and tone Mood: "okay" Affect: congruent to mood Thought Process: logical Thought Content: denies SI/HI's and AVH's Motor Activity: sitting up in bed Cognition: A/O x3 Insight: appropriate Judgment: appropriate Assessment and Plan Impression: Hx of Mood DO. Today the patient was calm and cooperative dung the assessment. Recommendation/Plan: Continue home medications Depakote 500 mg PO BID for mood, Seroquel 100 mg PO HS foor mood, and Zoloft 50 mg PO daily for depression. Discussed possible sucidality/medication induced emmanuel with the patient reference Zoloft. Discussed possible metabolic side effects of Seroquel with the patient reference Seroquel. She verbalized understanding for all her medications. Dispo: The patient can follow up with [facility] in [place], [place] or [facility] for outpatient psy services. Psy signs off. Will staff with Dr Liudmila Farnsworth.
[2019-05-01] MEDS: HumaLOG SUB-Q SCH ×2 (11:54→14:15)
[2019-05-01] MEDS: COZAAR PO SCH (11:55)
[2019-05-01] MEDS: NORVASC PO SCH (11:55)
[2019-05-01] MEDS: ALDACTONE PO SCH (11:55)
[2019-05-01] MEDS: TOPROL XL PO SCH (11:56)
[2019-05-01] MEDS: SODIUM CHLORIDE FLUSH SYRINGE 10 ML IV SCH (11:56)
[2019-05-01] MEDS: IMDUR PO SCH (11:56)
[2019-05-01] MEDS: PEPCID PO SCH (11:56)
[2019-05-01] MEDS: PROTONIX PO SCH (14:15)
[2019-05-01] MEDS: ZOLOFT PO SCH (14:15)
[2019-05-01 14:49] VITALS: BP 121/71
== END 2019-05-01 19:16 | disposition home or self-care (01) | DRG 637 ==
LOC: ED 10:39 → 4A 13:20
PROVIDERS: ADMIT Internal Medicine; ATTEND Internal Medicine
DX: E11.65 Type 2 diabetes mellitus with hyperglycemia (principal); I50.23 Acute on chronic systolic (congestive) heart failure; F17.213 Nicotine dependence, cigarettes, with withdrawal; I42.0 Dilated cardiomyopathy; I11.0 Hypertensive heart disease with heart failure; K21.9 Gastro-esophageal reflux disease without esophagitis; J44.9 Chronic obstructive pulmonary disease, unspecified; E66.9 Obesity, unspecified; E78.00 Pure hypercholesterolemia, unspecified; F31.9 Bipolar disorder, unspecified; F20.9 Schizophrenia, unspecified; Z83.3 Family history of diabetes mellitus; Z82.49 Family history of ischemic heart disease and other diseases of the circulatory system; Z90.710 Acquired absence of both cervix and uterus; Z79.51 Long term (current) use of inhaled steroids; Z68.37 Body mass index [BMI] 37.0-37.9, adult; Z71.6 Tobacco abuse counseling; Z79.84 Long term (current) use of oral hypoglycemic drugs
CPT/HCPCS: 36415; 71046; 80048; 80053; 80164; 82150; 82550; 82805; 82962; 83036; 83690; 83735; 83880; 84439; 84443; 84484; 85025; 85027; 85610; 85730; 87116; 93005; 93010; 93306; 94760; G0378; A9270-GY; J1815; J1940; J7040